=== PATIENT | female | born 1950 | race Caucasian/White ===

== ENCOUNTER → 2016-08-01 | Outpatient (REF) | payer MEDICARE, OTHER ==
[~2016-08-01] MED LIST: /RANI15TA PO; COMB0.2S OU; CRES5TAB PO; FOLITAB11 PO; IBUP200T2 PO; LEVO88TA4 PO; LOSA100T36 PO; VESI5TAB PO; VICO5TAB PO; VITA-122 PO
[2016-08-01 12:16] LABS: ALBUMIN 3.8 GM/DL (3.2-5.2); ALBUMIN/GLOBULIN RATIO 1.36 (1.00-1.93); ALKALINE PHOSPHATASE 74 U/L (45-117); ALT/SGPT 28 U/L (12-78); ANION GAP 8 MEQ/L (8-16); AST/SGOT 17 U/L (15-37); BILIRUBIN,TOTAL 0.3 MG/DL (0.2-1.0); BLOOD UREA NITROGEN 15 MG/DL (7-18); CARBON DIOXIDE LEVEL 29 MEQ/L (21-32); CHLORIDE LEVEL 108 MEQ/L (98-107); CREATININE FOR GFR 0.83 MG/DL (0.55-1.02); FREE T4 1.07 NG/DL (0.76-1.46); GLOMERULAR FILTRATION RATE > 60.0 (>45); GLUCOSE, FASTING 117 MG/DL (80-110); POTASSIUM SERUM 4.2 MEQ/L (3.5-5.1); SODIUM LEVEL 145 MEQ/L (136-145); TOTAL PROTEIN 6.6 GM/DL (6.4-8.2)
== END | disposition home or self-care (01) ==
LOC: M SFHCPLAZ 07:54
PROVIDERS: ATTEND Nurse Practitioner Family
DX: E78.5 Hyperlipidemia, unspecified (principal); E03.9 Hypothyroidism, unspecified; R73.01 Impaired fasting glucose; I10 Essential (primary) hypertension

== ENCOUNTER → 2016-10-30 | Outpatient (CLI) | payer MEDICARE, OTHER ==
--- NOTE | 2016-10-30 12:36 | RADONC ---
RADIATION ONCOLOGY FOLLOWUP NOTE DATE: 10/30/2016 CHART NUMBER: [id number] DIAGNOSIS: Left breast cancer stage I A, [id number]. ECOG PERFORMANCE STATUS: 0. FOLLOWUP NOTE: Ms. Kim is a very pleasant 66-year-old white female with the diagnosis of a Stage I A, [id number] moderately differentiated invasive ductal carcinoma of the left breast who is presenting to us today for routine followup visit 3 years and 4 months post completion of external beam radiation therapy. The patient presents today reporting that she is doing quite well with no complaints at this time related to her radiation therapy or disease. She has no breast or bone pain. REVIEW OF SYSTEMS: The patient's review of systems is noncontributory. Denies nausea, vomiting, fevers, chills, night sweats, diplopia, headaches, anxiety or depression, anorexia, weight loss, visual disturbances, chest pain, urinary or bowel difficulties, bone pain, or neurological problems. PHYSICAL EXAMINATION: The patient is a well-developed, well-nourished, 66-year-old female in no acute distress. HEENT exam is normocephalic, atraumatic. Extraocular movements are intact. There is no palpable cervical, supraclavicular, infraclavicular, axillary, or inguinal lymphadenopathy present. Lungs are clear to auscultation and percussion. Heart has a regular rate and rhythm. Abdomen is benign with no hepatosplenomegaly, masses, or tenderness. Breast examination reveals no masses or discharge bilaterally. Skeletal examination reveals no tenderness to pressure or percussion of the bony skeleton. Extremities reveal no clubbing, cyanosis, or edema. Neurologic exam is grossly intact, as is the remainder of the physical examination. ASSESSMENT: The patient is clinically ADRIAN at this time will be seen by us again in 6 months for further followup. She will also continue be followed by her other physicians as well.
== END ==
LOC: M ONCR 10:09
PROVIDERS: ATTEND Radiology Radiation Oncology
DX: C50.412 Malignant neoplasm of upper-outer quadrant of left female breast (principal)

== ENCOUNTER → 2017-01-22 | Outpatient (REF) | payer MEDICARE, OTHER ==
[2017-01-22 11:10] LABS: BASO % 0.5 % (0.0-1.0); EOS # 0.2 K/mm3 (0.0-0.50); EOS % 2.3 % (0.0-3.0); LARGE UNSTAINED CELL # 0.2 K/mm3 (0.0-0.4); LARGE UNSTAINED CELL % 2.1 % (0.0-4.0); LYMPH # 1.8 K/mm3 (1.5-4.5); LYMPH % 26.1 % (24.0-44.0); MEAN CORPUSCULAR HEMOGLOBIN 29.7 pg (27.0-33.0); MEAN CORPUSCULAR HGB CONC 33.1 g/dl (32.0-36.5); MEAN CORPUSCULAR VOLUME 89.6 fl (80.0-96.0); MONO # 0.4 K/mm3 (0.0-0.8); MONO % 6.1 % (0.0-5.0); NEUTROPHILS # 4.4 K/mm3 (1.8-7.7); NEUTROPHILS % 62.8 % (36.0-66.0); PLATELET COUNT, AUTOMATED 258 k/mm3 (150-450); RED CELL DISTRIBUTION WIDTH 12.1 % (11.5-14.5); WHITE BLOOD COUNT 6.9 K/mm3 (4.0-10.0)
[2017-01-22 11:37] LABS: ALBUMIN 3.6 GM/DL (3.2-5.2); ALKALINE PHOSPHATASE 60 U/L (45-117); ALT/SGPT 29 U/L (12-78); ANION GAP 10 MEQ/L (8-16); AST/SGOT 15 U/L (15-37); BILIRUBIN,TOTAL 0.3 MG/DL (0.2-1.0); BLOOD UREA NITROGEN 17 MG/DL (7-18); CALCIUM LEVEL 9.1 MG/DL (8.8-10.2); CARBON DIOXIDE LEVEL 29 MEQ/L (21-32); CHLORIDE LEVEL 104 MEQ/L (98-107); CHOLESTEROL LEVEL 164 MG/DL (<200); CREATININE FOR GFR 0.84 MG/DL (0.55-1.02); GLOMERULAR FILTRATION RATE > 60.0 (>45); GLUCOSE, FASTING 119 MG/DL (80-110); POTASSIUM SERUM 4.3 MEQ/L (3.5-5.1); SODIUM LEVEL 143 MEQ/L (136-145); TOTAL PROTEIN 6.6 GM/DL (6.4-8.2); TRIGLYCERIDES LEVEL 159 MG/DL (<150)
== END ==
LOC: M LABDRAW1 10:33
PROVIDERS: ATTEND Nurse Practitioner Family
DX: E78.5 Hyperlipidemia, unspecified (principal); E55.9 Vitamin D deficiency, unspecified

== ENCOUNTER → 2017-03-17 | Outpatient (REF) | payer MEDICARE, OTHER | LOC: M LAB REF 12:43 | PROVIDERS: ATTEND Physician Assistant | DX: N39.0 Urinary tract infection, site not specified (principal) ==

== ENCOUNTER → 2017-05-07 | Outpatient (CLI) | payer MEDICARE, OTHER ==
--- NOTE | 2017-05-08 07:59 | RADONC ---
RADIATION ONCOLOGY FOLLOWUP NOTE DATE: 05/07/2017 CHART NUMBER: [id number] DIAGNOSIS: Left breast cancer. STAGE: Stage I A, [id number]. ECOG PERFORMANCE STATUS: 0. FOLLOWUP NOTE: Ms. Kim is a very pleasant 66-year-old white female with the diagnosis of a stage I A, [id number], moderately differentiated invasive ductal carcinoma of the left breast who is presenting to us today for routine followup visit 3 and 10 months post completion of external beam radiation therapy. The patient presents today reporting that she is doing quite well with no complaints at this time related to her radiation therapy or disease. She has no breast or bone pain. REVIEW OF SYSTEMS: The patient's review of systems is noncontributory. Denies nausea, vomiting, fevers, chills, night sweats, diplopia, headaches, anxiety or depression, anorexia, weight loss, visual disturbances, chest pain, urinary or bowel difficulties, bone pain, or neurological problems. PHYSICAL EXAMINATION: The patient is a well-developed, well-nourished, 66-year-old female in no acute distress. HEENT exam is normocephalic, atraumatic. Extraocular movements are intact. There is no palpable cervical, supraclavicular, infraclavicular, axillary, or inguinal lymphadenopathy present. Lungs are clear to auscultation and percussion. Heart has a regular rate and rhythm. Abdomen is benign with no hepatosplenomegaly, masses, or tenderness. Breast examination reveals no masses or discharge bilaterally. Skeletal examination reveals no tenderness to pressure or percussion of the bony skeleton. Extremities reveal no clubbing, cyanosis, or edema. Neurologic exam is grossly intact, as is the remainder of the physical examination. ASSESSMENT: The patient is clinically ADRIAN at this time and will be seen by us again in 6 months for further followup. She will also continue to be followed by her other physicians as well. cc: Madelyn Camara PA-C
== END ==
LOC: M ONCR 09:53
PROVIDERS: ATTEND Radiology Radiation Oncology
DX: Z08 Encounter for follow-up examination after completed treatment for malignant neoplasm (principal); Z85.3 Personal history of malignant neoplasm of breast; Z92.3 Personal history of irradiation

== ENCOUNTER → 2017-05-11 | Outpatient (CLI) | payer MEDICARE, OTHER ==
--- NOTE | 2017-05-12 05:48 | REP ---
LEFT KNEE, FIVE VIEWS: Five views of the left knee performed. There is no evidence of acute fracture or dislocation. There is mild lateral patellofemoral compartment joint space narrowing with subchondral sclerosis and spurring. There does not appear to be a significant joint effusion. IMPRESSION: No fracture or dislocation. Signed by Tam Portillo MD 05/12/2017 09:01 A
== END ==
LOC: M WUC 15:07
PROVIDERS: ATTEND Physician Assistant
DX: S83.412A Sprain of medial collateral ligament of left knee, initial encounter (principal); X58.XXXA Exposure to other specified factors, initial encounter; Y92.89 Other specified places as the place of occurrence of the external cause; Y93.89 Activity, other specified; Y99.8 Other external cause status

== ENCOUNTER → 2017-08-15 | Outpatient (REF) | payer MEDICARE, OTHER ==
[2017-08-15 13:01] LABS: ALBUMIN 3.8 GM/DL (3.2-5.2); ALBUMIN/GLOBULIN RATIO 1.27 (1.00-1.93); ALKALINE PHOSPHATASE 63 U/L (45-117); ALT/SGPT 33 U/L (12-78); ANION GAP 9 MEQ/L (8-16); AST/SGOT 18 U/L (7-37); BILIRUBIN,TOTAL 0.3 MG/DL (0.2-1.0); BLOOD UREA NITROGEN 16 MG/DL (7-18); CALCIUM LEVEL 8.8 MG/DL (8.8-10.2); CARBON DIOXIDE LEVEL 29 MEQ/L (21-32); CHLORIDE LEVEL 106 MEQ/L (98-107); CREATININE FOR GFR 0.82 MG/DL (0.55-1.30); FREE T4 1.08 NG/DL (0.76-1.46); GLOMERULAR FILTRATION RATE > 60.0 (>45); GLUCOSE, FASTING 115 MG/DL (70-100); POTASSIUM SERUM 4.1 MEQ/L (3.5-5.1); SODIUM LEVEL 144 MEQ/L (136-145); TOTAL PROTEIN 6.8 GM/DL (6.4-8.2)
== END ==
LOC: M LABDRAW1 08:21
DX: I10 Essential (primary) hypertension (principal); E03.9 Hypothyroidism, unspecified; E55.9 Vitamin D deficiency, unspecified
CPT/HCPCS: 84443

== ENCOUNTER → 2017-10-22 | Outpatient (CLI) | payer MEDICARE, BC, OTHER | LOC: M ONCR 09:19 | DX: Z08 Encounter for follow-up examination after completed treatment for malignant neoplasm (principal); Z85.3 Personal history of malignant neoplasm of breast | CPT/HCPCS: G0463 ==

== ENCOUNTER 2017-10-28 10:59 | Day surgery (SDC) | payer MEDICARE, BC, OTHER ==
[2017-10-28] MEDS: LR 1,000 ML IV (11:45)
[2017-10-28] MEDS ORDERED: LIDOCAINE 2% INJ 100 MG/5 ML SYRINGE As Ordered (13:20)
[2017-10-28] MEDS ORDERED: PROPOFOL 200 MG/20 ML VIAL As Ordered ×2 (13:20→13:35)
== END 2017-10-28 14:50 | disposition home or self-care (01) ==
LOC: M OPP 10:59
DX: Z12.11 Encounter for screening for malignant neoplasm of colon (principal); Z86.010 Personal history of colon polyps; D12.3 Benign neoplasm of transverse colon; D12.5 Benign neoplasm of sigmoid colon; D12.2 Benign neoplasm of ascending colon; D17.5 Benign lipomatous neoplasm of intra-abdominal organs; K57.30 Diverticulosis of large intestine without perforation or abscess without bleeding; I10 Essential (primary) hypertension; E78.5 Hyperlipidemia, unspecified; E03.9 Hypothyroidism, unspecified; K21.9 Gastro-esophageal reflux disease without esophagitis; M19.90 Unspecified osteoarthritis, unspecified site; H40.9 Unspecified glaucoma; E66.9 Obesity, unspecified; Z85.3 Personal history of malignant neoplasm of breast; Z92.3 Personal history of irradiation; Z87.891 Personal history of nicotine dependence; Z88.8 Allergy status to other drugs, medicaments and biological substances; Z88.2 Allergy status to sulfonamides; Z79.899 Other long term (current) drug therapy
CPT/HCPCS: 45388

== ENCOUNTER → 2018-02-04 | Outpatient (REF) | payer MEDICARE, BC, OTHER ==
[2018-02-04 12:38] LABS: ALBUMIN 3.7 GM/DL (3.2-5.2); ALBUMIN/GLOBULIN RATIO 1.12 (1.00-1.93); ALKALINE PHOSPHATASE 68 U/L (45-117); ALT/SGPT 33 U/L (12-78); ANION GAP 7 MEQ/L (8-16); AST/SGOT 19 U/L (7-37); BILIRUBIN,TOTAL 0.3 MG/DL (0.2-1.0); BLOOD UREA NITROGEN 14 MG/DL (7-18); CALCIUM LEVEL 8.8 MG/DL (8.8-10.2); CARBON DIOXIDE LEVEL 30 MEQ/L (21-32); CHLORIDE LEVEL 107 MEQ/L (98-107); CHOLESTEROL LEVEL 152 MG/DL (<200); CREATININE FOR GFR 0.83 MG/DL (0.55-1.30); FREE T4 0.99 NG/DL (0.76-1.46); GLOMERULAR FILTRATION RATE > 60.0 (>45); GLUCOSE, FASTING 118 MG/DL (70-100); HDL CHOLESTEROL 40 MG/DL (>40); NON-HDL-C 112 MG/DL; POTASSIUM SERUM 4.3 MEQ/L (3.5-5.1); SODIUM LEVEL 144 MEQ/L (136-145); TRIGLYCERIDES LEVEL 175 MG/DL (<150)
[2018-02-04 12:41] LABS: MALB URINE SIEMENS 90.2 MG/L; MAU/CREAT RATIO 65.8 MCG/MG (0.0-30.0)
[2018-02-04 14:06] LABS: ESTIMATED AVERAGE GLUCOSE 140 MG/DL (60-110); HEMOGLOBIN A1c 6.5 %
== END ==
LOC: M LABDRAW1 07:36
DX: E78.5 Hyperlipidemia, unspecified (principal); E03.9 Hypothyroidism, unspecified; R73.01 Impaired fasting glucose; I10 Essential (primary) hypertension
CPT/HCPCS: 84443

== ENCOUNTER → 2018-04-06 | Outpatient (REF) | payer MEDICARE, OTHER | LOC: M SFHCPLAZ 12:15 | DX: D22.39 Melanocytic nevi of other parts of face (principal); A50 Congenital syphilis; L57.0 Actinic keratosis; L57.8 Other skin changes due to chronic exposure to nonionizing radiation | CPT/HCPCS: 88305 ==

== ENCOUNTER → 2018-04-22 | Outpatient (CLI) | payer MEDICARE, BC, OTHER | LOC: M ONCR 09:16 | DX: C50.912 Malignant neoplasm of unspecified site of left female breast (principal) | CPT/HCPCS: G0463 ==

== ENCOUNTER → 2018-05-12 | Outpatient (REF) | payer MEDICARE, OTHER ==
[2018-05-12 10:45] LABS: ALBUMIN 3.8 GM/DL (3.2-5.2); ALBUMIN/GLOBULIN RATIO 1.19 (1.00-1.93); ALKALINE PHOSPHATASE 69 U/L (45-117); ALT/SGPT 30 U/L (12-78); ANION GAP 8 MEQ/L (8-16); AST/SGOT 16 U/L (7-37); BILIRUBIN,TOTAL 0.3 MG/DL (0.2-1.0); BLOOD UREA NITROGEN 16 MG/DL (7-18); CALCIUM LEVEL 9.1 MG/DL (8.8-10.2); CARBON DIOXIDE LEVEL 27 MEQ/L (21-32); CHLORIDE LEVEL 106 MEQ/L (98-107); CREATININE FOR GFR 0.83 MG/DL (0.55-1.30); FREE T4 1.01 NG/DL (0.76-1.46); GLOMERULAR FILTRATION RATE > 60.0 (>45); GLUCOSE, FASTING 138 MG/DL (70-100); POTASSIUM SERUM 4.3 MEQ/L (3.5-5.1); SODIUM LEVEL 141 MEQ/L (136-145)
[2018-05-12 10:47] LABS: TOTAL 25(OH) VITAMIN D 53.2 NG/ML (30.0-100.0)
== END ==
LOC: M LABDRAW1 10:06
DX: I10 Essential (primary) hypertension (principal); R73.01 Impaired fasting glucose; E03.9 Hypothyroidism, unspecified; E55.9 Vitamin D deficiency, unspecified
CPT/HCPCS: 84443

== ENCOUNTER → 2018-05-20 | Outpatient (REF) | payer MEDICARE, OTHER ==
[2018-05-20 14:03] LABS: ESTIMATED AVERAGE GLUCOSE 157 MG/DL (60-110); HEMOGLOBIN A1c 7.1 %
== END ==
LOC: M SFHCPLAZ 08:52
DX: I10 Essential (primary) hypertension (principal); R73.01 Impaired fasting glucose
CPT/HCPCS: 83036

== ENCOUNTER → 2018-05-26 | Outpatient (REF) | payer MEDICARE, OTHER ==
[2018-05-26 14:12] LABS: APPEARANCE, URINE CLEAR (CLEAR); BACTERIA, URINE AUTO NEGATIVE (NEGATIVE); BILIRUBIN, URINE AUTO NEGATIVE (NEGATIVE); BLOOD, URINE BLOOD 3+ (NEGATIVE); COLOR, URINE STRAW (YELLOW); GLUCOSE, URINE (UA) AUTO NEGATIVE (NEGATIVE); KETONE, URINE AUTO NEGATIVE (NEGATIVE); LEUKOCYTE ESTERASE, URINE AUTO NEGATIVE (NEGATIVE); NITRITE, URINE AUTO NEGATIVE (NEGATIVE); PROTEIN, URINE AUTO NEGATIVE (NEGATIVE); RBC, URINE AUTO 13 /HPF (0-3); SPECIFIC GRAVITY URINE AUTO 1.005 (1.002-1.035); SQUAMOUS EPITHELIAL CELL UR AU 0 /HPF (0-6); UROBILINOGEN, URINE AUTO 0.2 mg/dL (0.0-2.0); WBC, URINE AUTO 4 /HPF (0-3)
== END ==
LOC: M LAB REF 13:31
DX: N39.0 Urinary tract infection, site not specified (principal)
CPT/HCPCS: 81001

== ENCOUNTER → 2018-06-19 | Outpatient (REF) | payer MEDICARE, OTHER ==
[~2018-06-19] MED LIST changes: +DESO0.0557 TOP; +EXEM25TA PO; +FLON1SPR; +FLUO1CRE4 TOP; +FOLI400T PO; +LORA-243 PO; +LORA10CA PO; +LOSA100T50 PO; +METF500T13 PO; +OMEP-221 PO; +ROSU5TAB4 PO; +SYNT100T PO; +TAFLUPROST OU; +THERSOL2 OU; +VITA30004 PO
[2018-06-19 19:08] LABS: CREATININE, URINE 51.7 MG/DL; MALB URINE SIEMENS 91.4 MG/L; MAU/CREAT RATIO 176.7 MCG/MG (0.0-30.0)
[2018-06-27 14:13] LABS: HPV HYBRID CAPTURE II Negative (Negative)
== END ==
LOC: M SFHCPLAZ 18:02
PROVIDERS: ATTEND Nurse Practitioner Family
DX: N95.0 Postmenopausal bleeding (principal); R30.0 Dysuria; Z12.4 Encounter for screening for malignant neoplasm of cervix
CPT/HCPCS: 36415; 81002; 82043; 85025; 87086; 87624; G0123; G0463

== ENCOUNTER → 2018-06-19 | Outpatient (REF) | payer MEDICARE, OTHER ==
[2018-06-19 18:10] LABS: BASO % 0.4 % (0.0-1.0); EOS # 0.2 10^3/uL (0.0-0.50); EOS % 2.6 % (0.0-3.0); HEMATOCRIT 43.6 % (36.0-47.0); IMMATURE GRANULOCYTE % 0.4 % (0-3.0); LYMPH # 2.7 10^3/uL (1.5-4.5); LYMPH % 30.4 % (24.0-44.0); MEAN CORPUSCULAR HEMOGLOBIN 28.8 pg (27.0-33.0); MEAN CORPUSCULAR HGB CONC 32.1 g/dl (32.0-36.5); MEAN CORPUSCULAR VOLUME 89.7 fl (80.0-96.0); MONO # 0.9 10^3/uL (0.0-0.8); MONO % 9.9 % (0.0-5.0); NEUTROPHILS # 5.1 10^3/uL (1.8-7.7); NEUTROPHILS % 56.3 % (36.0-66.0); PLATELET COUNT, AUTOMATED 263 10^3/uL (150-450); RED BLOOD COUNT 4.86 10^6/uL (4.00-5.40); RED CELL DISTRIBUTION WIDTH 12.3 % (11.5-14.5)
== END ==
LOC: M SFHCPLAZ 14:59
DX: N95.0 Postmenopausal bleeding (principal)
CPT/HCPCS: 85025

== ENCOUNTER → 2018-06-29 | Outpatient (REF) | payer MEDICARE, OTHER ==
[~2018-06-29] MED LIST changes: -DESO0.0557 TOP; -FLON1SPR; -FLUO1CRE4 TOP; -LORA-243 PO; -METF500T13 PO; -THERSOL2 OU
== END ==
LOC: M LABSMT 09:15
PROVIDERS: ATTEND Urology Pediatric Urology
DX: I10 Essential (primary) hypertension (principal); R73.01 Impaired fasting glucose; E55.9 Vitamin D deficiency, unspecified; N32.89 Other specified disorders of bladder; Z53.8 Procedure and treatment not carried out for other reasons

== ENCOUNTER → 2018-06-30 | Outpatient (REF) | payer MEDICARE, OTHER | LOC: M SMT 12:46 | PROVIDERS: ATTEND Urology Pediatric Urology | DX: N32.89 Other specified disorders of bladder (principal) ==

== ENCOUNTER → 2018-06-30 | Outpatient (CLI) | payer MEDICARE, BC, OTHER ==
[2018-06-30 14:07] LABS: BASO # 0.1 10^3/uL (0.0-0.2); BASO % 0.5 % (0.0-1.0); EOS # 0.2 10^3/uL (0.0-0.50); EOS % 2.5 % (0.0-3.0); HEMATOCRIT 46.5 % (36.0-47.0); HEMOGLOBIN 14.8 g/dl (12.0-15.5); LYMPH # 2.9 10^3/uL (1.5-4.5); LYMPH % 31.7 % (24.0-44.0); MEAN CORPUSCULAR HEMOGLOBIN 28.9 pg (27.0-33.0); MEAN CORPUSCULAR HGB CONC 31.8 g/dl (32.0-36.5); MEAN CORPUSCULAR VOLUME 90.8 fl (80.0-96.0); MONO # 0.6 10^3/uL (0.0-0.8); MONO % 6.7 % (0.0-5.0); NEUTROPHILS # 5.4 10^3/uL (1.8-7.7); PLATELET COUNT, AUTOMATED 279 10^3/uL (150-450); RED BLOOD COUNT 5.12 10^6/uL (4.00-5.40); WHITE BLOOD COUNT 9.3 10^3/uL (4.0-10.0)
[2018-06-30 14:13] LABS: ALBUMIN 3.8 GM/DL (3.2-5.2); ALT/SGPT 37 U/L (12-78); BILIRUBIN,TOTAL 0.3 MG/DL (0.2-1.0); BLOOD UREA NITROGEN 13 MG/DL (7-18); CALCIUM LEVEL 9.2 MG/DL (8.8-10.2); CARBON DIOXIDE LEVEL 27 MEQ/L (21-32); CHLORIDE LEVEL 107 MEQ/L (98-107); CREATININE FOR GFR 0.78 MG/DL (0.55-1.30); GLOMERULAR FILTRATION RATE > 60.0 (>45); GLUCOSE, FASTING 122 MG/DL (70-100); POTASSIUM SERUM 4.8 MEQ/L (3.5-5.1); SODIUM LEVEL 143 MEQ/L (136-145)
[2018-06-30 14:19] LABS: INR 0.93; PROTHROMBIN TIME 12.6 SECONDS (12.1-14.4)
[2018-06-30 14:20] LABS: PARTIAL THROMBOPLASTIN TIME 29.9 SECONDS (25.4-37.6)
[2018-06-30 14:25] LABS: HEMOGLOBIN A1c 7.2 %
== END ==
LOC: M SMT 09:10
PROVIDERS: ATTEND Urology Pediatric Urology
DX: I10 Essential (primary) hypertension (principal); R73.01 Impaired fasting glucose; E55.9 Vitamin D deficiency, unspecified; N32.89 Other specified disorders of bladder

== ENCOUNTER → 2018-07-06 | Outpatient (CLI) | payer MEDICARE, BC, OTHER ==
--- NOTE | 2018-07-06 11:30 | REP ---
Chest x-ray: Two views. History: Preoperative testing. Comparison chest x-ray: October 05, 2013. Findings: The lungs are symmetrically aerated and clear. Pleural angles are sharp. Heart size is borderline and has increased somewhat since the prior study in 2013. Cardiothoracic ratio today measures 51%. There are degenerative changes in the thoracic spine. Mild transverse aortic calcification is seen. There is a benign bone infarct in the proximal humerus on the right. Impression: Borderline heart size. Otherwise no acute disease. Electronically Signed by John Guzman MD 07/06/2018 08:12 P
--- NOTE | 2018-07-08 07:54 | ECGEPIP ---
Stationary ECG Study [facility] Test Date: 2018-07-06 Pat Name: ELIZABETH ALTAMIRANO Department: Room: - Gender: F Deburrer Machine: : [id number] Requested By: WOLF Monteiro Order Number: [id number] Reading MD: Carlos Gordon Measurements Intervals Newell Rate: 62 P: 29 WA: 169 QRS: 17 QRSD: 101 T: 47 QT: 415 QTc: 422 Interpretive Statements SINUS RHYTHM Comparison tracing not on file Electronically Signed On 07-08-2018 7:54:19 EST by Carlos Gordon
== END ==
LOC: M EKG 09:51
PROVIDERS: ATTEND Urology
DX: Z01.818 Encounter for other preprocedural examination (principal); D49.4 Neoplasm of unspecified behavior of bladder; N39.0 Urinary tract infection, site not specified

== ENCOUNTER → 2018-07-06 | Outpatient (CLI) | payer MEDICARE, BC, OTHER ==
[~2018-07-06] MED LIST changes: +DESO0.0557 TOP; +FLON1SPR; +FLUO1CRE4 TOP; +ISOVUE-370 76% 100ML VIAL (Q9967) As Ordered ONE; +LORA-243 PO; +METF500T13 PO; +THERSOL2 OU
--- NOTE | 2018-07-06 11:25 | REP ---
CT UROGRAPHY: CT study without and with IV phase postcontrast imaging. HISTORY: Bladder mass. Identified sonographically June 25, 2018. No comparison CT imaging. CT CONTRAST DOSE: 100 mL of intravenous Isovue 370. CT FINDINGS: Preliminary digital device engineer radiograph demonstrates clips in right upper quadrant post cholecystectomy. Bowel gas pattern is normal. The lung bases are clear on axial images. The liver shows mild diffuse fatty infiltration. No focal liver mass lesion is seen. Liver and spleen are normal in size. No splenic abnormality is seen. Normal adrenal glands are seen bilaterally. No pancreatic abnormality is noted. No retroperitoneal mass or adenopathy is seen. A retroaortic left renal vein is noted. Kidneys are morphologically intact. No hydronephrosis is seen on either side. No renal mass lesion is observed. There is a tiny cortical cyst in the upper pole on the left. Delayed scan images show no evidence of filling defect in the upper tract collecting system on either side. Ureters describe a normal course to the bladder. The CT study confirms the presence of an irregular enhancing soft tissue mass in the left posterior bladder base measuring approximately 3.6 x 3.3 cm. This corresponds the ultrasound findings. No perivesical infiltration is appreciated. There is a normal size 7 mm short axis lymph node in each external iliac lymph node change. No internal or external iliac lymphadenopathy is seen. No inguinal or obturator adenopathy is appreciated. There is left colonic diverticulosis without CT evidence of diverticulitis. There is left colonic diverticulosis without CT evidence of diverticulitis. No uterine or ovarian abnormality is seen. No abdominal wall defect is seen. Bone window setting demonstrate degenerative changes in the lumbar spine and osteoarthritic changes in the hips. No bony destructive lesion is seen. IMPRESSION: 3.6 cm irregular enhancing neoplastic bladder mass. No other significant urinary tract abnormality. Left colonic diverticulosis. Fatty infiltration of the liver. Post cholecystectomy clips. Electronically Signed by John Guzman MD 07/06/2018 08:12 P
== END ==
LOC: M RAD 08:28
PROVIDERS: ATTEND Urology Pediatric Urology
DX: Z01.818 Encounter for other preprocedural examination (principal); N32.89 Other specified disorders of bladder; D48.4 Neoplasm of uncertain behavior of peritoneum; N39.0 Urinary tract infection, site not specified; Z90.49 Acquired absence of other specified parts of digestive tract
CPT/HCPCS: 71046; 74178; 93005; Q9967

== ENCOUNTER → 2018-07-09 | Outpatient (REF) | payer MEDICARE, OTHER ==
[~2018-07-09] MED LIST changes: -ISOVUE-370 76% 100ML VIAL (Q9967) As Ordered ONE
== END ==
LOC: M SMT 17:11
PROVIDERS: ATTEND Urology
DX: Z01.818 Encounter for other preprocedural examination (principal); N39.0 Urinary tract infection, site not specified; D49.4 Neoplasm of unspecified behavior of bladder

== ENCOUNTER 2018-07-16 13:54 | Day surgery (SDC) | payer MEDICARE, BC, OTHER ==
[~2018-07-16] VITALS: Ht 160 cm; Wt 96.2 kg
[~2018-07-16 13:54] MED LIST changes: +LIDOCAINE 1% MDV 20ML VIAL SQ PRN; +LR 1,000 ML IV ONE
[2018-07-16] MEDS ORDERED: SCOPOLAMINE 1MG TRANSDERMAL PATCH As Ordered ONE (15:16)
[2018-07-16] MEDS ORDERED: SCOPOLAMINE 1MG TRANSDERMAL PATCH TOP ONE (15:30)
[2018-07-16] MEDS ORDERED: LIDOCAINE 1% SDV INJ 30 ML VIAL As Ordered ONE (16:26)
[2018-07-16] MEDS ORDERED: CONRAY-60 60% 50ML VIAL (Q9961) As Ordered ONE (16:26)
[2018-07-16] MEDS: LABETALOL HCL 100 MG/20 ML VIAL IV SCH ×5 (17:16→19:51)
[2018-07-16] MEDS ORDERED: PHENYLephrine HCL 500 MCG/5 ML (100MCG/ML) SYRINGE (J2370) As Ordered ONE (17:32)
[2018-07-16] MEDS ORDERED: fentaNYL 250 MCG/5 ML INJECTION (J3010) As Ordered ONE (17:51)
[2018-07-16] MEDS ORDERED: ROCURONIUM BROMIDE 50 MG/5 ML VIAL As Ordered ONE (17:51)
[2018-07-16] MEDS ORDERED: PROPOFOL 200 MG/20 ML VIAL As Ordered ONE (17:51)
[2018-07-16] MEDS ORDERED: MIDAZOLAM INJ 2 MG/2 ML VIAL (J2250) As Ordered ONE (17:51)
[2018-07-16] MEDS ORDERED: ONDANSETRON 4MG/2ML VIAL (J2405) As Ordered ONE ×2 (17:51→19:17)
[2018-07-16] MEDS ORDERED: dexameTHASONE 4 MG/ML 1ML VIAL (J1100) As Ordered ONE (17:51)
[2018-07-16] MEDS ORDERED: SUGAMMADEX SODIUM 500 MG/5 ML VIAL (BRIDION) As Ordered ONE (17:52)
[2018-07-16] MEDS ORDERED: GLYCOPYRROLATE INJ 0.2 MG/ML 2 ML VIAL As Ordered ONE (18:43)
--- NOTE | 2018-07-16 18:57 | REP ---
C-ARM VIEWS DURING RETROGRADE PYELOGRAM: Two C-ARM views are obtained. First image shows contrast opacifying a nondilated left pelvicaliceal system, with no definite filling defect. There is mild contrast also seen in the medial perirenal space. The catheter is seen with the proximal end in the left renal pelvis. The second image shows the catheter once again with the superior end coiled in the region of the left renal pelvis. Contrast previously seen in the pelvicaliceal system is no longer visualized. There is mild perirenal contrast medially. 1 minute 2 second of fluoroscopy time was utilized. Electronically Signed by Tam Portillo MD 07/16/2018 07:50 P
[2018-07-16] MEDS ORDERED: LABETALOL HCL 100 MG/20 ML VIAL As Ordered ONE (19:11)
[2018-07-16] MEDS ORDERED: LR 1,000 ML IV SCH (19:30)
[2018-07-16] MEDS ORDERED: METOCLOPRAMIDE INJ 10MG/2ML VIAL (J2765) IV PRN (19:30)
[2018-07-16] MEDS ORDERED: fentaNYL 100 MCG/2 ML INJECTION (J3010) IV PRN (19:30)
[2018-07-16] MEDS ORDERED: ONDANSETRON 4MG/2ML VIAL (J2405) IV PRN (19:30)
[2018-07-16] MEDS ORDERED: PERCOCET 5MG/325MG TAB PO PRN ×2 (19:30→19:45)
[2018-07-16] MEDS ORDERED: MEPERIDINE INJ 25 MG/ML VIAL (J2175) IV PRN (19:30)
[2018-07-16] MEDS ORDERED: oxyBUTYnin 5 MG TAB PO PRN (19:45)
[2018-07-16 19:51] VITALS: BP 174/80
[2018-07-16] MEDS ORDERED: METOCLOPRAMIDE INJ 10MG/2ML VIAL (J2765) As Ordered ONE (20:42)
[2018-07-16 22:20] VITALS: BP 141/63
--- NOTE | 2018-07-16 22:26 | RO ---
DATE OF PROCEDURE: 07/16/2018 PREPROCEDURE DIAGNOSIS: Bladder tumor. POSTPROCEDURE DIAGNOSIS: Bladder tumor. PROCEDURE: Cystoscopy, transurethral resection of bladder tumor (greater than 5 cm), left retrograde pyelogram with intraoperative interpretation of images, left ureteral stent placement, bimanual examination under anesthesia. SURGEON: Dr. Meet Garcia NEEDLE BOARD REPAIRER: None. ANESTHESIA: General. OPERATIVE INDICATIONS: This is a 67-year-old female who was recently found to have several large bladder tumors on the left lateral wall on cystoscopy. It was recommended that she be brought to the operating room today for the above listed procedure. DESCRIPTION OF PROCEDURE: The patient was brought to the operating room and general anesthesia induced. Prophylactic antibiotics were infused. She was then placed in the dorsal lithotomy position and prepped and draped in the usual sterile fashion. At this point, a bimanual vaginal exam under anesthesia was performed. Of note, there were no palpable bladder masses. The bladder was freely mobile. At this point, I inserted a resectoscope using visual obturator. The bladder was then thoroughly examined and the only abnormality seen was a large collection of papillary tumors on the left lateral wall as well as a small one on the anterior wall near the bladder neck. At this point, a resectoscope was utilized to resect all of the bladder tumor all the way down to the muscle layer. All of the bladder tumors were removed from the bladder using an Ellik evacuator. Once all of the tumors had been removed, hemostasis was obtained using a coagulation current. Once satisfied with hemostasis, I observed the left ureteral orifice and of note, I did have to cauterize very close to the left ureteral orifice but not on top of it. Given concern that the ureteral orifice might not drain normally, I then decided to place a stent. At this point, I advanced a wire up the left collecting system and then advanced an open ended ureteral catheter up. The wire was then removed and a retrograde pyelogram was performed. The retrograde pyelogram was negative for extravasation or hydronephrosis. I then advanced the wire back up in the left collecting system and removed the ureteral catheter. The wire was then utilized to advance a #7-Iranian x 22-32 cm JJ ureteral stent up to the left collecting system. The wire was then removed, and there were adequate curls of the stent in the left renal pelvis and in the bladder. Once that was done, the scope was removed, and I advanced an #18-Iranian Dukes catheter into the bladder. The balloon was filled with 10 mL of sterile water and fluid drained light pink at the end of the procedure. The catheter was then connected to gravity drainage and then I turned the procedure over to Dr. Coon for him to do his portion of the procedure. Estimated blood loss: 10 mL. Complications: None. Specimens: Bladder tumors. PLAN: The patient will followup in the clinic in approximately 1 week for catheter removal and to discuss her pathology results. I will likely leave her stent in place for 2-3 weeks. MARLENE
--- NOTE | 2018-07-17 09:20 | RO ---
DATE OF PROCEDURE: 07/16/2018 PREPROCEDURE DIAGNOSIS: Postmenopausal bleeding. POSTPROCEDURE DIAGNOSIS: Postmenopausal bleeding. PROCEDURE PERFORMED: Endometrial biopsy. SURGEON: Laly Coon MD INTEL RECRUITER: None. ANESTHESIA: General. ESTIMATED BLOOD LOSS: Minimal. DESCRIPTION OF PROCEDURE: This procedure was done in conjunction with Dr. Garcia's transurethral resection of bladder tumor. I was called at the completion of the procedure to perform an endometrial biopsy. The patient was already prepped and draped in a normal sterile fashion. She was in the lithotomy position under general anesthesia. A second time-out was then performed identifying the patient, procedure to be performed, as well as drug allergies. A bivalve speculum was placed revealing the cervix. The anterior lip of the cervix was grasped with a single toothed tenaculum and endometrial Pipelle was then advanced through the cervical os to the level of the fundus. The uterus was sounded to approximately 8 cm. On two passes, minimal amounts of tissue was obtained and sent to pathology. The single toothed tenaculum was then removed. Tenaculum sites were noted to be hemostatic. Speculum was then removed. The patient was then taken out of lithotomy position, awakened from general anesthesia and taken to recovery in stable condition. Counts were correct. MTDD
== END 2018-07-16 22:31 | disposition home or self-care (01) ==
LOC: M SDC 13:54
PROVIDERS: ATTEND Urology
DX: C67.2 Malignant neoplasm of lateral wall of bladder (principal); N95.0 Postmenopausal bleeding; E11.9 Type 2 diabetes mellitus without complications; K21.9 Gastro-esophageal reflux disease without esophagitis; E03.9 Hypothyroidism, unspecified; Z88.2 Allergy status to sulfonamides; Z88.8 Allergy status to other drugs, medicaments and biological substances; Z79.84 Long term (current) use of oral hypoglycemic drugs; Z79.899 Other long term (current) drug therapy; Z87.891 Personal history of nicotine dependence
CPT/HCPCS: 52240; 52332; 58558; 74420; 88305; 88307; C1769; C2617; J0690; J1100; J2250; J2370; J2405; J2765; J3010; Q9961

== ENCOUNTER → 2018-09-25 | Outpatient (REF) | payer MEDICARE, OTHER ==
[~2018-09-25] MED LIST changes: -/RANI15TA PO; -LIDOCAINE 1% MDV 20ML VIAL SQ PRN; -LR 1,000 ML IV ONE; +RANI1TAB17 PO
[2018-09-25 12:21] LABS: ALT/SGPT 35 U/L (12-78); BILIRUBIN,TOTAL 0.3 MG/DL (0.2-1.0); BLOOD UREA NITROGEN 14 MG/DL (7-18); CALCIUM LEVEL 9.1 MG/DL (8.8-10.2); CARBON DIOXIDE LEVEL 29 MEQ/L (21-32); CHLORIDE LEVEL 106 MEQ/L (98-107); CREATININE FOR GFR 0.71 MG/DL (0.55-1.30); GLOMERULAR FILTRATION RATE > 60.0 (>39); GLUCOSE, FASTING 125 MG/DL (70-100); POTASSIUM SERUM 4.2 MEQ/L (3.5-5.1); SODIUM LEVEL 143 MEQ/L (136-145); TOTAL PROTEIN 6.8 GM/DL (6.4-8.2)
[2018-09-25 12:22] LABS: TOTAL 25(OH) VITAMIN D 54.3 NG/ML (30.0-100.0)
[2018-09-25 13:14] LABS: HEMOGLOBIN A1c 6.4 %
== END ==
LOC: M LABDRAW1 11:45
PROVIDERS: ATTEND Nurse Practitioner Family
DX: E55.9 Vitamin D deficiency, unspecified (principal); I10 Essential (primary) hypertension

== ENCOUNTER → 2018-09-30 | Outpatient (REF) | payer MEDICARE, OTHER ==
[2018-09-30 12:34] LABS: ALBUMIN 3.7 GM/DL (3.2-5.2); ALT/SGPT 27 U/L (12-78); BILIRUBIN,TOTAL 0.3 MG/DL (0.2-1.0); BLOOD UREA NITROGEN 17 MG/DL (7-18); CARBON DIOXIDE LEVEL 29 MEQ/L (21-32); CHLORIDE LEVEL 106 MEQ/L (98-107); CREATININE FOR GFR 0.77 MG/DL (0.55-1.30); GLOMERULAR FILTRATION RATE > 60.0 (>39); GLUCOSE, FASTING 186 MG/DL (70-100); POTASSIUM SERUM 3.9 MEQ/L (3.5-5.1); SODIUM LEVEL 141 MEQ/L (136-145); TOTAL PROTEIN 6.7 GM/DL (6.4-8.2)
== END ==
LOC: M SFHCPLAZ 08:49
PROVIDERS: ATTEND Nurse Practitioner Family
DX: E03.9 Hypothyroidism, unspecified (principal); E78.5 Hyperlipidemia, unspecified; E11.9 Type 2 diabetes mellitus without complications
CPT/HCPCS: 36415; 80053; 84443; G0463

== ENCOUNTER → 2018-11-02 | Outpatient (REF) | payer MEDICARE, OTHER ==
[~2018-11-02] MED LIST changes: +AMLO5TAB6 PO
== END ==
LOC: M SMT 13:44
PROVIDERS: ATTEND Urology
DX: C67.9 Malignant neoplasm of bladder, unspecified (principal)

== ENCOUNTER → 2018-11-18 | Outpatient (REF) | payer MEDICARE, BC, OTHER ==
[2018-11-18 12:34] LABS: HEMATOCRIT 45.7 % (36.0-47.0); HEMOGLOBIN 14.5 g/dl (12.0-15.5); MEAN CORPUSCULAR HEMOGLOBIN 29.2 pg (27.0-33.0); MEAN CORPUSCULAR HGB CONC 31.7 g/dl (32.0-36.5); MEAN CORPUSCULAR VOLUME 92.1 fl (80.0-96.0); PLATELET COUNT, AUTOMATED 274 10^3/uL (150-450); RED BLOOD COUNT 4.96 10^6/uL (4.00-5.40); WHITE BLOOD COUNT 7.6 10^3/uL (4.0-10.0)
[2018-11-18 12:49] LABS: BLOOD UREA NITROGEN 13 MG/DL (7-18); CALCIUM LEVEL 8.8 MG/DL (8.8-10.2); CARBON DIOXIDE LEVEL 29 MEQ/L (21-32); CHLORIDE LEVEL 105 MEQ/L (98-107); CREATININE FOR GFR 0.81 MG/DL (0.55-1.30); GLOMERULAR FILTRATION RATE > 60.0 (>39); GLUCOSE, FASTING 107 MG/DL (70-100); POTASSIUM SERUM 4.2 MEQ/L (3.5-5.1); SODIUM LEVEL 144 MEQ/L (136-145)
== END ==
LOC: M LABDRAW1 07:53
PROVIDERS: ATTEND Urology
DX: C67.9 Malignant neoplasm of bladder, unspecified (principal); Z01.818 Encounter for other preprocedural examination; N39.0 Urinary tract infection, site not specified

== ENCOUNTER 2018-11-25 07:24 | Day surgery (SDC) | payer MEDICARE, BC, OTHER ==
[~2018-11-25] VITALS: Ht 157.5 cm; Wt 90.7 kg
[~2018-11-25 07:24] MED LIST changes: +LIDOCAINE 1% MDV 20ML VIAL SQ PRN; +LR 1,000 ML IV ONE; +mitoMYcin 40MG VIAL (J9280 PER 5MG) INTRAVESIC ONE
[2018-11-25] MEDS ORDERED: fentaNYL 250 MCG/5 ML INJECTION (J3010) As Ordered ONE (07:59)
[2018-11-25] MEDS ORDERED: PROPOFOL 200 MG/20 ML VIAL As Ordered ONE (07:59)
[2018-11-25] MEDS ORDERED: LIDOCAINE 2% INJ 100 MG/5 ML SDV (FOR ANES.) As Ordered ONE (07:59)
[2018-11-25] MEDS ORDERED: ROCURONIUM BROMIDE 50 MG/5 ML VIAL As Ordered ONE (07:59)
[2018-11-25] MEDS ORDERED: MIDAZOLAM INJ 2 MG/2 ML VIAL (J2250) As Ordered ONE (07:59)
[2018-11-25] MEDS ORDERED: SCOPOLAMINE 1MG TRANSDERMAL PATCH As Ordered ONE (08:35)
[2018-11-25] MEDS ORDERED: SCOPOLAMINE 1MG TRANSDERMAL PATCH TOP ONE (09:00)
[2018-11-25] MEDS ORDERED: METOCLOPRAMIDE INJ 10MG/2ML VIAL (J2765) As Ordered ONE ×2 (09:23→10:31)
[2018-11-25] MEDS ORDERED: KETOROLAC 60 MG/2 ML VIAL (J1885) As Ordered ONE (09:23)
[2018-11-25] MEDS ORDERED: ONDANSETRON 4MG/2ML VIAL (J2405) As Ordered ONE (09:23)
[2018-11-25] MEDS ORDERED: diphenhydrAMINE INJ 50MG/ML VIAL (J1200) As Ordered ONE (09:23)
[2018-11-25] MEDS ORDERED: SUGAMMADEX SODIUM 500 MG/5 ML VIAL (BRIDION) As Ordered ONE (09:24)
--- NOTE | 2018-11-25 10:27 | RO ---
DATE OF PROCEDURE: 11/25/2018 PREPROCEDURE DIAGNOSIS: Bladder cancer. POSTPROCEDURE DIAGNOSIS: Bladder cancer. PROCEDURE: Cystoscopy, transurethral resection of bladder tumor (between 2-5 cm), intravesical mitomycin C installation. SURGEON: Dr. Meet Garcia SENIOR TECHNOLOGIST: None. ANESTHESIA: General. OPERATIVE INDICATIONS: This is a 68-year-old female that had history of low grade bladder cancer who on recent office cystoscopy was found to have several papillary tumors throughout her bladder. She was brought to the operating room today for the above listed procedures. DESCRIPTION OF PROCEDURE: The patient was brought to the operating room where general anesthesia was induced. Prophylactic antibiotics were infused. She was then placed in dorsal lithotomy position and prepped and draped in the usual sterile fashion. A rigid cystoscope was inserted into the urethral meatus and advanced into the bladder using visual obturator. The bladder was then thoroughly examined. It was noted she had several very small papillary tumors dispersed throughout her bladder, on the anterior wall, the posterior wall, at the base, as well as, on the left lateral wall. All these tumors were resected using a Gyrus loop. The base of resection in each area was cauterized for good hemostasis. Once done resecting all the tumors were removed using an [employer] evacuator. The bladder was then examined several additional times to ensure that all the visible tumors were removed. Once that was done and I was satisfied with hemostasis, the resectoscope was removed. I then inserted an 18 Cymraes 3-way catheter and filled the balloon with 30 mL of sterile water. The irrigation port was plugged and at this point 40 mg of mitomycin C was instilled into the bladder and once that was done that port was plugged. This marked the conclusion of the procedure. The patient was then taken out of the dorsal lithotomy position, awakened from anesthesia and transported to the recovery room in stable condition. Estimated blood loss: 5 mL. Complications: None. Specimen: Bladder tumors. Plan: The patient will be keep the mitomycin C in her bladder for about an hour in the recovery room. Once that is done, it will be allowed to drain out. After which, the bladder will be irrigated out with normal saline. She will then go home with the catheter and follow up in the clinic next week for catheter removal and to discuss pathology results.
[2018-11-25] MEDS ORDERED: METOCLOPRAMIDE INJ 10MG/2ML VIAL (J2765) IV PRN (10:45)
[2018-11-25] MEDS ORDERED: fentaNYL 100 MCG/2 ML INJECTION (J3010) IV PRN (10:45)
[2018-11-25] MEDS ORDERED: LR 1,000 ML IV SCH (10:45)
[2018-11-25] MEDS ORDERED: PROMETHAZINE INJ 25 MG/ML VIAL (J2550) IV PRN (10:45)
[2018-11-25] MEDS ORDERED: oxyCODONE 5MG TAB PO PRN (10:45)
[2018-11-25] MEDS ORDERED: ACETAMINOPHEN TAB 650MG DOSE (2X325MG) PO PRN (11:00)
[2018-11-25 12:31] VITALS: BP 133/61
== END 2018-11-25 12:45 | disposition home or self-care (01) ==
LOC: M SDC 07:24
PROVIDERS: ATTEND Urology
DX: C67.8 Malignant neoplasm of overlapping sites of bladder (principal); I10 Essential (primary) hypertension; E78.5 Hyperlipidemia, unspecified; E11.9 Type 2 diabetes mellitus without complications; E03.9 Hypothyroidism, unspecified; K21.9 Gastro-esophageal reflux disease without esophagitis; Z92.3 Personal history of irradiation; Z88.2 Allergy status to sulfonamides; Z88.8 Allergy status to other drugs, medicaments and biological substances; Z79.84 Long term (current) use of oral hypoglycemic drugs; Z79.899 Other long term (current) drug therapy; Z87.891 Personal history of nicotine dependence
CPT/HCPCS: 51720; 52235; 88307; J0690; J1200; J1885; J2250; J2405; J2765; J3010; J9280

== ENCOUNTER → 2018-12-23 | Outpatient (REF) | payer MEDICARE, OTHER ==
[~2018-12-23] MED LIST changes: -LIDOCAINE 1% MDV 20ML VIAL SQ PRN; -LR 1,000 ML IV ONE; -ROSU5TAB4 PO; +ROSU5TAB5 PO; -mitoMYcin 40MG VIAL (J9280 PER 5MG) INTRAVESIC ONE
[2018-12-23 13:31] LABS: ALBUMIN 3.6 GM/DL (3.2-5.2); ALT/SGPT 23 U/L (12-78); BILIRUBIN,TOTAL 0.3 MG/DL (0.2-1.0); BLOOD UREA NITROGEN 16 MG/DL (7-18); CALCIUM LEVEL 8.4 MG/DL (8.8-10.2); CARBON DIOXIDE LEVEL 27 MEQ/L (21-32); CHLORIDE LEVEL 107 MEQ/L (98-107); CREATININE FOR GFR 0.72 MG/DL (0.55-1.30); GLOMERULAR FILTRATION RATE > 60.0 (>39); GLUCOSE, FASTING 95 MG/DL (70-100); POTASSIUM SERUM 4.2 MEQ/L (3.5-5.1); SODIUM LEVEL 142 MEQ/L (136-145); TOTAL PROTEIN 6.7 GM/DL (6.4-8.2)
[2018-12-23 14:43] LABS: HEMOGLOBIN A1c 6.3 %
== END ==
LOC: M LABDRAW1 11:47
PROVIDERS: ATTEND Nurse Practitioner Family
DX: E78.5 Hyperlipidemia, unspecified (principal); E11.9 Type 2 diabetes mellitus without complications; E03.9 Hypothyroidism, unspecified

== ENCOUNTER → 2018-12-28 | Outpatient (REF) | payer MEDICARE, OTHER ==
[2018-12-28 13:41] LABS: APPEARANCE, URINE CLOUDY (CLEAR); BACTERIA, URINE AUTO 1+ (NEGATIVE); BILIRUBIN, URINE AUTO NEGATIVE (NEGATIVE); BLOOD, URINE BLOOD 3+ (NEGATIVE); COLOR, URINE YELLOW (YELLOW); GLUCOSE, URINE (UA) AUTO NEGATIVE (NEGATIVE); KETONE, URINE AUTO NEGATIVE (NEGATIVE); LEUKOCYTE ESTERASE, URINE AUTO 3+ (NEGATIVE); MUCUS, URINE SMALL (NEGATIVE); NITRITE, URINE AUTO NEGATIVE (NEGATIVE); PROTEIN, URINE AUTO 2+ mg/dL (NEGATIVE); RBC, URINE AUTO TNTC /HPF (0-3); SPECIFIC GRAVITY URINE AUTO 1.013 (1.002-1.035); SQUAMOUS EPITHELIAL CELL UR AU 2 /HPF (0-6); UROBILINOGEN, URINE AUTO 0.2 mg/dL (0.0-2.0); WBC, URINE AUTO TNTC /HPF (0-3)
== END ==
LOC: M SMT 12:59
PROVIDERS: ATTEND Nurse Practitioner Family
DX: R30.0 Dysuria (principal)

== ENCOUNTER → 2018-12-29 | Outpatient (REF) | payer MEDICARE, OTHER ==
[2018-12-29 13:39] LABS: APPEARANCE, URINE MANUAL CLOUDY (CLEAR)
[2018-12-29 13:40] LABS: BILIRUBIN, URINE MANUAL OBSCURED (NEGATIVE); BLOOD URINE MANUAL POSITIVE (NEGATIVE); COLOR, URINE MANUAL BROWN (YELLOW); GLUCOSE, URINE (UA) MANUAL OBSCURED mg/dL (NEGATIVE); KETONE, URINE MANUAL OBSCURED mg/dL (NEGATIVE); LEUKOCYTE ESTERASE, URINE MAN OBSCURED (NEGATIVE); NITRITE, URINE MANUAL OBSCURED (NEGATIVE); PROTEIN, URINE MANUAL OBSCURED mg/dL (NEGATIVE); SPECIFIC GRAVITY,URINE MANUAL 1.015 (1.002-1.035); UROBILINOGEN, URINE MANUAL OBSCURED mg/dl (NORMAL)
[2018-12-29 13:48] LABS: AMORPHOUS SEDIMENT, URINE MOD AMOUNT (NEGATIVE); BACTERIA, URINE MOD AMOUNT; HYALINE CAST, URINE NONE SEEN /lpf (0-1); SQUAMOUS EPITHELIAL CELL URINE SMALL AMOUNT /hpf (SMALL AMT); WBC, URINE 30-40 /hpf (0-3)
== END ==
LOC: M SMT 12:56
PROVIDERS: ATTEND Nurse Practitioner Family
DX: N39.0 Urinary tract infection, site not specified (principal)

== ENCOUNTER → 2019-01-08 | Outpatient (REF) | payer MEDICARE, OTHER | LOC: M SMT 17:01 | PROVIDERS: ATTEND Urology | DX: N39.0 Urinary tract infection, site not specified (principal) ==

== ENCOUNTER → 2019-02-12 | Outpatient (REF) | payer MEDICARE, OTHER ==
[2019-02-12 13:17] LABS: FREE T4 1.29 NG/DL (0.76-1.46); THYROID STIMULATING HORMONE 0.654 uIU/ML (0.358-3.740)
== END ==
LOC: M LABDRAW1 12:00
PROVIDERS: ATTEND Nurse Practitioner Family
DX: E03.9 Hypothyroidism, unspecified (principal)

== ENCOUNTER → 2019-03-22 | Outpatient (REF) | payer MEDICARE, OTHER | LOC: M SMT 10:21 | PROVIDERS: ATTEND Urology | DX: C67.9 Malignant neoplasm of bladder, unspecified (principal) ==

== ENCOUNTER → 2019-04-08 | Outpatient (REF) | payer MEDICARE, OTHER | LOC: M SFHCPLAZ 10:22 | PROVIDERS: ATTEND Dermatology | DX: L57.0 Actinic keratosis (principal); L82.0 Inflamed seborrheic keratosis ==

== ENCOUNTER → 2019-04-09 | Outpatient (REF) | payer MEDICARE, OTHER ==
[2019-04-09 13:35] LABS: HEMOGLOBIN A1c 6.5 %
[2019-04-09 13:40] LABS: MALB URINE SIEMENS 14.6 MG/L; MAU/CREAT RATIO 8.2 MCG/MG (0.0-30.0)
[2019-04-09 14:13] LABS: ALBUMIN 3.7 GM/DL (3.2-5.2); ALT/SGPT 35 U/L (12-78); BILIRUBIN,TOTAL 0.3 MG/DL (0.2-1.0); BLOOD UREA NITROGEN 12 MG/DL (7-18); CALCIUM LEVEL 8.6 MG/DL (8.8-10.2); CARBON DIOXIDE LEVEL 27 MEQ/L (21-32); CHLORIDE LEVEL 105 MEQ/L (98-107); CHOLESTEROL LEVEL 158 MG/DL (<200); CHOLESTEROL RISK RATIO 3.291 (<5); CREATININE FOR GFR 0.83 MG/DL (0.55-1.30); FREE T4 1.13 NG/DL (0.76-1.46); GLOMERULAR FILTRATION RATE > 60.0 (>39); GLUCOSE, FASTING 112 MG/DL (70-100); HDL CHOLESTEROL 48 MG/DL (>40); LDL CHOLESTEROL 88 MG/DL (<100); NON-HDL-C 110 MG/DL; POTASSIUM SERUM 4.1 MEQ/L (3.5-5.1); SODIUM LEVEL 140 MEQ/L (136-145); TOTAL PROTEIN 6.9 GM/DL (6.4-8.2); TRIGLYCERIDES LEVEL 109 MG/DL (<150)
== END ==
LOC: M LABDRAW1 11:51
PROVIDERS: ATTEND Nurse Practitioner Family
DX: I10 Essential (primary) hypertension (principal); E11.9 Type 2 diabetes mellitus without complications; E78.5 Hyperlipidemia, unspecified; E03.9 Hypothyroidism, unspecified

== ENCOUNTER → 2019-06-21 | Outpatient (REF) | payer MEDICARE, OTHER | LOC: M SMT 13:03 | PROVIDERS: ATTEND Urology | DX: C67.9 Malignant neoplasm of bladder, unspecified (principal) ==

== ENCOUNTER → 2019-10-11 | Outpatient (REF) | payer MEDICARE | LOC: M LAB REF 17:20 | PROVIDERS: ATTEND Urology | DX: C67.9 Malignant neoplasm of bladder, unspecified (principal); N39.0 Urinary tract infection, site not specified ==

== ENCOUNTER → 2019-12-09 | Outpatient (CLI) | payer MEDICARE, BC, OTHER ==
[~2019-12-09] MED LIST changes: +AMLO1TAB24 PO; -AMLO5TAB6 PO
[2019-12-09 09:35] LABS: ALBUMIN 3.7 GM/DL (3.2-5.2); ALT/SGPT 31 U/L (12-78); BILIRUBIN,TOTAL 0.3 MG/DL (0.2-1.0); BLOOD UREA NITROGEN 15 MG/DL (7-18); CARBON DIOXIDE LEVEL 30 MEQ/L (21-32); CHLORIDE LEVEL 106 MEQ/L (98-107); CHOLESTEROL LEVEL 142 MG/DL (<200); CREATININE FOR GFR 0.84 MG/DL (0.55-1.30); FREE T4 1.15 NG/DL (0.76-1.46); GLOMERULAR FILTRATION RATE > 60.0 (>39); GLUCOSE, FASTING 121 MG/DL (70-100); HDL CHOLESTEROL 42 MG/DL (>40); LDL CHOLESTEROL 78 MG/DL (<100); NON-HDL-C 100 MG/DL; POTASSIUM SERUM 4.3 MEQ/L (3.5-5.1); SODIUM LEVEL 142 MEQ/L (136-145); TOTAL PROTEIN 6.8 GM/DL (6.4-8.2); TRIGLYCERIDES LEVEL 110 MG/DL (<150)
[2019-12-09 09:49] LABS: MALB URINE SIEMENS 30.1 MG/L; MAU/CREAT RATIO 11.5 MCG/MG (0.0-30.0)
[2019-12-09 10:20] LABS: HEMOGLOBIN A1c 6.7 %
[2019-12-10 18:39] LABS: TOTAL 25(OH) VITAMIN D 55.8 NG/ML (30.0-100.0)
== END ==
LOC: M LAB 07:50
PROVIDERS: ATTEND Nurse Practitioner Adult Health
DX: E11.9 Type 2 diabetes mellitus without complications (principal); E03.9 Hypothyroidism, unspecified; E55.9 Vitamin D deficiency, unspecified; E78.5 Hyperlipidemia, unspecified

== ENCOUNTER → 2020-02-18 | Outpatient (REF) | payer MEDICARE, BC, OTHER | LOC: M SMT 17:14 | PROVIDERS: ATTEND Urology | DX: C67.9 Malignant neoplasm of bladder, unspecified (principal) ==

== ENCOUNTER → 2020-06-06 | Outpatient (CLI) | payer MEDICARE, OTHER ==
[2020-06-06 09:26] LABS: ALBUMIN 3.7 GM/DL (3.2-5.2); ALT/SGPT 31 U/L (12-78); BILIRUBIN,TOTAL 0.3 MG/DL (0.2-1.0); BLOOD UREA NITROGEN 19 MG/DL (7-18); CALCIUM LEVEL 8.9 MG/DL (8.8-10.2); CARBON DIOXIDE LEVEL 28 MEQ/L (21-32); CHLORIDE LEVEL 106 MEQ/L (98-107); CHOLESTEROL LEVEL 156 MG/DL (<200); CHOLESTEROL RISK RATIO 3.391 (<5); CREATININE FOR GFR 0.84 MG/DL (0.55-1.30); GLOMERULAR FILTRATION RATE > 60.0 (>39); GLUCOSE, FASTING 128 MG/DL (70-100); HDL CHOLESTEROL 46 MG/DL (>40); LDL CHOLESTEROL 77 MG/DL (<100); NON-HDL-C 110 MG/DL; POTASSIUM SERUM 4.1 MEQ/L (3.5-5.1); SODIUM LEVEL 140 MEQ/L (136-145); TRIGLYCERIDES LEVEL 165 MG/DL (<150)
[2020-06-06 09:32] LABS: MALB URINE SIEMENS 42.2 MG/L; MAU/CREAT RATIO 14.3 MCG/MG (0.0-30.0)
[2020-06-06 09:44] LABS: TOTAL 25(OH) VITAMIN D 40.6 NG/ML (30.0-100.0)
[2020-06-06 11:15] LABS: HEMOGLOBIN A1c 6.3 %
== END ==
LOC: M LAB 08:13
PROVIDERS: ATTEND Nurse Practitioner Adult Health
DX: E11.9 Type 2 diabetes mellitus without complications (principal); E78.5 Hyperlipidemia, unspecified; E55.9 Vitamin D deficiency, unspecified; E03.9 Hypothyroidism, unspecified; Z79.899 Other long term (current) drug therapy

== ENCOUNTER → 2020-09-04 | Outpatient (REF) | payer MEDICARE, OTHER ==
[~2020-09-04] MED LIST changes: -FOLI400T PO; +FOLI400T13 PO
== END ==
LOC: M SMT 09:39
PROVIDERS: ATTEND Urology
DX: C67.9 Malignant neoplasm of bladder, unspecified (principal)

== ENCOUNTER → 2020-10-03 | Outpatient (CLI) | payer MEDICARE, BC, OTHER ==
[~2020-10-03] MED LIST changes: +D31000TA PO; +DULO1CAP4 PO; +FLUTISP; +IBUP80TA PO; +LEVO-92 PO; +ZINC1TAB2 PO
[2020-10-03 07:30] LABS: HEMATOCRIT 44.9 % (36.0-47.0); HEMOGLOBIN 14.1 g/dl (12.0-15.5); MEAN CORPUSCULAR HEMOGLOBIN 28.1 pg (27.0-33.0); MEAN CORPUSCULAR HGB CONC 31.4 g/dl (32.0-36.5); MEAN CORPUSCULAR VOLUME 89.4 fl (80.0-96.0); PLATELET COUNT, AUTOMATED 283 10^3/uL (150-450); RED BLOOD COUNT 5.02 10^6/uL (4.00-5.40); WHITE BLOOD COUNT 10.2 10^3/uL (4.0-10.0)
[2020-10-03 07:50] LABS: BLOOD UREA NITROGEN 17 MG/DL (7-18); CALCIUM LEVEL 9.4 MG/DL (8.8-10.2); CARBON DIOXIDE LEVEL 27 MEQ/L (21-32); CHLORIDE LEVEL 106 MEQ/L (98-107); CREATININE FOR GFR 0.85 MG/DL (0.55-1.30); GLOMERULAR FILTRATION RATE > 60.0 (>39); GLUCOSE, FASTING 134 MG/DL (70-100); SODIUM LEVEL 140 MEQ/L (136-145)
--- NOTE | 2020-10-03 08:37 | REP ---
INDICATION: MALIGNANT NEOPLASM OF BLADDER, UNSPECIFIED, Labs,EKG1st COMPARISON: 07/06/2018 TECHNIQUE: PA and lateral. FINDINGS: The mediastinum and cardiac silhouette are normal. The lung rucker are clear and without acute consolidation, effusion, or pneumothorax. There is an ill-defined heterogeneous/sclerotic lesion in the right humerus unchanged from prior examination likely representing old bony infarction. IMPRESSION: No acute cardiopulmonary process. <Electronically signed by Gustavo Rico > 10/03/20 [id number]
--- NOTE | 2020-10-04 00:29 | ECGEPIP ---
[facility] Test Date: 2020-10-03 Pat Name: ELIZABETH ALTAMIRANO Department: Room: - Gender: Female Watch Repair Person: TOMMIE : 1950 Requested By: WOLF Monteiro Order Number: [id number] Reading MD: Jackson Castillo Measurements Intervals Webster Rate: 74 P: 70 SD: 152 QRS: 22 QRSD: 88 T: 70 QT: 372 QTc: 412 Interpretive Statements Normal sinus rhythm with sinus arrhythmia Last tracing on 07/06/18, 10:11. No remarkable changes Electronically Signed on 10-04-2020 0:29:18 EDT by Jackson Castillo
== END ==
LOC: M LAB 06:37
PROVIDERS: ATTEND Urology
DX: Z01.818 Encounter for other preprocedural examination (principal); C67.9 Malignant neoplasm of bladder, unspecified

== ENCOUNTER → 2020-10-08 | Outpatient (CLI) | payer MEDICARE, OTHER | LOC: M LABSMTC 09:00 | PROVIDERS: ATTEND Anesthesiology | DX: Z01.812 Encounter for preprocedural laboratory examination (principal); Z20.822 Contact with and (suspected) exposure to COVID-19 ==

== ENCOUNTER 2020-10-13 11:25 | Day surgery (SDC) | payer MEDICARE, BC, OTHER ==
[~2020-10-13] VITALS: Ht 160 cm; Wt 91.1 kg
[~2020-10-13 11:25] MED LIST changes: +LR 1,000 ML IV ONE
[2020-10-13] MEDS: ceFAZolin SOD 2 GM in IV 1 EA IV ONE ×2 (11:25→12:50)
[2020-10-13] MEDS ORDERED: MIDAZOLAM INJ 2MG/2ML VIAL (J2250 PER 1MG) As Ordered ONE (11:42)
[2020-10-13] MEDS ORDERED: propofoL 200 MG/20 ML VIAL As Ordered ONE (11:43)
[2020-10-13] MEDS ORDERED: ePHEDrine SULFATE 25 MG/5 ML(5MG/ML) SYRINGE As Ordered ONE (11:43)
[2020-10-13] MEDS ORDERED: dexameTHASONE 4 MG/ML 1ML VIAL (J1100 PER 1MG) As Ordered ONE (11:43)
[2020-10-13] MEDS ORDERED: ROCURONIUM BROMIDE 50 MG/5 ML VIAL As Ordered ONE (11:43)
[2020-10-13] MEDS ORDERED: LIDOCAINE 2% 100MG/5ML SDV (FOR ANES.) As Ordered ONE (11:43)
[2020-10-13] MEDS ORDERED: ONDANSETRON 4MG/2ML VIAL As Ordered ONE (11:43)
[2020-10-13] MEDS ORDERED: SUGAMMADEX SODIUM 500 MG/5 ML VIAL (BRIDION) As Ordered ONE (11:43)
[2020-10-13] MEDS ORDERED: fentaNYL 100 MCG/2 ML INJECTION (J3010) As Ordered ONE (11:43)
[2020-10-13] MEDS ORDERED: PHENYLephrine 500MCG 5ML (100MCG/ML) SYRINGE As Ordered ONE (11:44)
[2020-10-13] MEDS ORDERED: SCOPOLAMINE 1MG TRANSDERMAL PATCH TOP ONE (12:30)
--- NOTE | 2020-10-13 13:37 | RO ---
OPERATIVE NOTE DATE OF OPERATION: 10/13/2020 PREOPERATIVE DIAGNOSIS: Bladder cancer. POSTOPERATIVE DIAGNOSIS: Bladder cancer. PROCEDURES: 1. Cystoscopy. 2. Transurethral resection of bladder tumors (less than 2 cm). SURGEON: Meet Garcia MD. CREATIVE SPECIALIST: None. ANESTHESIA: General. OPERATIVE INDICATIONS: This is a 70-year-old female with a history of low-grade bladder cancer who was found to have recurrent tumors on recent office cystoscopy. She is brought to the operating room today for treatment. DESCRIPTION OF PROCEDURE: The patient was brought to the operating room and general anesthesia was induced. Prophylactic antibiotics were infused. She was placed in the dorsolithotomy position, prepped, and draped in the usual sterile fashion. A resectoscope was inserted into the urethral meatus and advanced to the bladder using a visual obturator. The bladder was then thoroughly examined and the only abnormalities seen were two small papillary tumors measuring about 1.5 cm in size total. They were located just distal to the right ureteral orifice and close to the bladder neck. At this point, a bipolar loop was utilized to resect both tumors. Both tumors were sent off for pathologic analysis. The base of resection was then cauterized using coagulation current. At this point, hemostasis appeared excellent. I observed the right ureteral orifice to make sure that it was not damaged from the procedure and it continued to efflux clear urine without any difficulty. At this point, the resectoscope was removed and an 18-Paraguayan Dukes catheter was inserted into the bladder. The balloon was filled with 10 mL of sterile water and then the catheter was connected to gravity drainage. This marked the conclusion of the procedure. The patient was taken out of the dorsolithotomy position, awakened from anesthesia, and transported to the recovery room in stable condition. ESTIMATED BLOOD LOSS: 5 mL. COMPLICATIONS: None. SPECIMENS: Bladder tumors. PLAN: The patient will follow-up in the urology clinic next week for catheter removal and discuss her pathology results.
[2020-10-13] MEDS ORDERED: ACETAMINOPHEN TAB 650MG DOSE (2X325MG) PO PRN (13:40)
[2020-10-13] MEDS ORDERED: LR 1,000 ML IV SCH (13:45)
[2020-10-13] MEDS ORDERED: METOCLOPRAMIDE INJ 10MG/2ML VIAL (J2765 PER 1) IV PRN (13:45)
[2020-10-13] MEDS ORDERED: fentaNYL 100 MCG/2 ML INJECTION (J3010) IV PRN (13:45)
[2020-10-13] MEDS ORDERED: PERCOCET 5MG/325MG TAB PO PRN (13:45)
[2020-10-13] MEDS ORDERED: ONDANSETRON 4MG/2ML VIAL IV PRN (13:45)
[2020-10-13 14:25] VITALS: BP 156/79
== END 2020-10-13 15:17 | disposition home or self-care (01) ==
LOC: M SDC 11:25
PROVIDERS: ATTEND Urology
DX: C67.5 Malignant neoplasm of bladder neck (principal); I10 Essential (primary) hypertension; E78.5 Hyperlipidemia, unspecified; E11.9 Type 2 diabetes mellitus without complications; E03.9 Hypothyroidism, unspecified; K21.9 Gastro-esophageal reflux disease without esophagitis; M16.0 Bilateral primary osteoarthritis of hip; M17.0 Bilateral primary osteoarthritis of knee; R06.83 Snoring; Z85.3 Personal history of malignant neoplasm of breast; Z87.891 Personal history of nicotine dependence; Z92.3 Personal history of irradiation; Z88.8 Allergy status to other drugs, medicaments and biological substances; Z88.3 Allergy status to other anti-infective agents; Z88.2 Allergy status to sulfonamides; Z79.899 Other long term (current) drug therapy; Z79.84 Long term (current) use of oral hypoglycemic drugs
CPT/HCPCS: 52234; 88305; J0690; J1100; J2250; J2370; J2405; J3010

== ENCOUNTER → 2020-12-07 | Outpatient (REF) | payer MEDICARE, OTHER ==
[~2020-12-07] MED LIST changes: -LR 1,000 ML IV ONE; +MECL1TAB31 PO
[2020-12-07 11:02] LABS: HEMOGLOBIN A1c 6.3 %
[2020-12-07 11:18] LABS: ALBUMIN 3.9 GM/DL (3.2-5.2); ALT/SGPT 29 U/L (12-78); BILIRUBIN,TOTAL 0.2 MG/DL (0.2-1.0); BLOOD UREA NITROGEN 14 MG/DL (7-18); CALCIUM LEVEL 9.7 MG/DL (8.8-10.2); CARBON DIOXIDE LEVEL 29 MEQ/L (21-32); CHLORIDE LEVEL 108 MEQ/L (98-107); CREATININE FOR GFR 0.69 MG/DL (0.55-1.30); GLOMERULAR FILTRATION RATE > 60.0 (>39); GLUCOSE, FASTING 115 MG/DL (70-100); POTASSIUM SERUM 4.2 MEQ/L (3.5-5.1); SODIUM LEVEL 142 MEQ/L (136-145); THYROID STIMULATING HORMONE 0.887 uIU/ML (0.358-3.740); TOTAL PROTEIN 7.1 GM/DL (6.4-8.2)
[2020-12-07 12:04] LABS: TOTAL 25(OH) VITAMIN D 35.3 NG/ML (30.0-100.0)
== END ==
LOC: M SFHCPLAZ 08:49
PROVIDERS: ATTEND Nurse Practitioner Adult Health
DX: E55.9 Vitamin D deficiency, unspecified (principal); E11.9 Type 2 diabetes mellitus without complications; E78.5 Hyperlipidemia, unspecified; E03.9 Hypothyroidism, unspecified
CPT/HCPCS: 36415; 80053; 82306; 83036; 84443; G0463

== ENCOUNTER 2020-12-09 09:27 | Emergency (ER) | payer MEDICARE, BC, OTHER ==
[~2020-12-09 09:27] MED LIST changes: -MECL1TAB31 PO
[2020-12-09 10:15] LABS: BASO % 0.4 % (0.0-1.0); EOS # 0.3 10^3/uL (0.0-0.5); EOS % 2.9 % (0.0-3.0); HEMATOCRIT 44.7 % (36.0-47.0); HEMOGLOBIN 14.1 g/dl (12.0-15.5); LYMPH # 1.8 10^3/uL (1.5-5.0); LYMPH % 19.3 % (24.0-44.0); MEAN CORPUSCULAR HEMOGLOBIN 28.5 pg (27.0-33.0); MEAN CORPUSCULAR HGB CONC 31.5 g/dl (32.0-36.5); MEAN CORPUSCULAR VOLUME 90.3 fl (80.0-96.0); MONO # 0.6 10^3/uL (0.0-0.8); MONO % 6.2 % (2.0-8.0); NEUTROPHILS # 6.5 10^3/uL (1.5-8.5); NEUTROPHILS % 70.8 % (36.0-66.0); PLATELET COUNT, AUTOMATED 268 10^3/uL (150-450); RED BLOOD COUNT 4.95 10^6/uL (4.00-5.40); WHITE BLOOD COUNT 9.2 10^3/uL (4.0-10.0)
--- NOTE | 2020-12-09 10:32 | REP ---
INDICATION: fall, abrasion left posterior chest. COMPARISON: The frontal view of the chest has when compared to prior examination 10/03/2020 TECHNIQUE: Frontal view the chest four views of the ribs bilateral The lower ribs cannot be evaluated due to technique. There is underpenetration of the radiographic kraft. FINDINGS: The frontal view of the chest is unchanged from the prior exam showing no acute disease. There is no evidence of a rib fracture. Chronic changes are seen involving the spine and proximal right humerus. IMPRESSION: Findings and limitations as described above. <Electronically signed by Mychal Wyatt > 12/09/20 [id number]
--- NOTE | 2020-12-09 10:33 | REP ---
INDICATION: fall, abrasion left posterior chest. COMPARISON: None TECHNIQUE: AP pelvis two views left hip FINDINGS: AP pelvis shows mild to moderate bilateral hip joint space narrowing left slightly greater than right. There is no acute fracture, dislocation, or subluxation. IMPRESSION: Chronic changes as described above. <Electronically signed by Mychal Wyatt > 12/09/20 [id number]
[2020-12-09 10:51] LABS: ALBUMIN 3.7 GM/DL (3.2-5.2); ALT/SGPT 31 U/L (12-78); BILIRUBIN,TOTAL 0.4 MG/DL (0.2-1.0); BLOOD UREA NITROGEN 17 MG/DL (7-18); CALCIUM LEVEL 8.5 MG/DL (8.8-10.2); CARBON DIOXIDE LEVEL 30 MEQ/L (21-32); CHLORIDE LEVEL 107 MEQ/L (98-107); GLOMERULAR FILTRATION RATE > 60.0 (>39); GLUCOSE, FASTING 134 MG/DL (70-100); POTASSIUM SERUM 4.6 MEQ/L (3.5-5.1); SODIUM LEVEL 140 MEQ/L (136-145)
--- NOTE | 2020-12-09 11:13 | REP ---
INDICATION: fall, rib injury, right COMPARISON: None TECHNIQUE: Standard helical technique without the administration of intravenous contrast FINDINGS: There is no mediastinal or hilar adenopathy. There are no pleural or pericardial effusions. The imaged upper abdomen is within normal limits. Bone window technique throughout the examination shows the imaged osseous structures to be within normal limits. There are spinal degenerative changes. Evaluation of the lung rucker shows a partially peripherally calcified 4 mm size nodule in the left lower lobe. There are no other abnormal nodules, masses, or opacities. IMPRESSION: 1. The osseous structures are within normal limits. There is no evidence of an acute fracture. 2. Pulmonary nodule as described above. According to the revised Fleischner society criteria this represents a lung rads category 3 examination for which a six-month follow-up chest CT is recommended. <Electronically signed by Mychal Wyatt > 12/09/20 1711
--- NOTE | 2020-12-09 11:23 | ED PDOC ---
Post-Departure Follow-Up sujata lilly faxed formal report of ct chest for fu Britta Naik MD Dec 09, 2020 11:22
[2020-12-09] MEDS ORDERED: NS 500 ML IV ONE (11:55)
[2020-12-09] MEDS ORDERED: MECL1TAB31 PO (12:03)
[2020-12-09 14:30] VITALS: BP 148/70
== END 2020-12-09 14:30 | disposition home or self-care (01) ==
LOC: EDBD 09:27 → M ED 09:27
DX: R42 Dizziness and giddiness (principal); R91.1 Solitary pulmonary nodule; I10 Essential (primary) hypertension; E78.5 Hyperlipidemia, unspecified; E03.9 Hypothyroidism, unspecified; K21.9 Gastro-esophageal reflux disease without esophagitis; Z79.899 Other long term (current) drug therapy; Z79.890 Hormone replacement therapy; Z88.1 Allergy status to other antibiotic agents; Z88.2 Allergy status to sulfonamides; Z88.8 Allergy status to other drugs, medicaments and biological substances; Z87.891 Personal history of nicotine dependence

== ENCOUNTER → 2021-01-16 | Outpatient (REF) | payer MEDICARE, BC, OTHER ==
[~2021-01-16] MED LIST changes: +MECL1TAB31 PO
== END ==
LOC: M SMT 13:21
PROVIDERS: ATTEND Urology
DX: C67.9 Malignant neoplasm of bladder, unspecified (principal)

== ENCOUNTER → 2021-02-06 | Outpatient (CLI) | payer MEDICARE, BC, OTHER ==
[2021-02-06 11:00] LABS: BLOOD UREA NITROGEN 11 MG/DL (7-18); CREATININE FOR GFR 0.71 MG/DL (0.55-1.30); GLOMERULAR FILTRATION RATE > 60.0 (>39)
== END ==
LOC: M LAB 10:09
PROVIDERS: ATTEND Orthopaedic Surgery
DX: M79.601 Pain in right arm (principal)

== ENCOUNTER → 2021-02-09 | Outpatient (CLI) | payer MEDICARE, BC, OTHER ==
--- NOTE | 2021-02-09 16:32 | REP ---
INDICATION: PAIN RT ARM, R/O MASS. COMPARISON: None. TECHNIQUE: Coronal oblique T1, T2 fat sat, sagittal oblique T2 fat sat, axial T2 fat sat, gradient echo. Pre and post contrast T1 fat-sat imaging, with the intravenous administration of 17 cc ProHance. FINDINGS: Rotator cuff: There is mild tendinopathy/tendinitis of the supraspinatus tendon. Acromioclavicular joint: There are moderate hypertrophic degenerative changes of the acromioclavicular joint. Acromion: Type 2 Biceps Tendon: In bicipital groove, no tenosynovitis. Hill Sach's deformity: None. Deltoid muscle: No abnormal signal. Biceps labral complex: Intact. Labrum: No tear. Cartilage: No defects. Bone marrow: There is abnormal intramedullary bone marrow signal in the metaphyseal region of the proximal humerus. There is heterogeneous low signal on T1 and high signal on T2, in a pattern suggesting and internal chondroid matrix. The area measures approximately 4.2 x 3.6 cm. This has the appearance of an enchondroma. There is no cortical disruption or extraosseous extension. There is no associated soft tissue mass. Joint fluid: No effusion. IMPRESSION: Bone lesion in the proximal humerus demonstrates characteristics most consistent with an enchondroma. Differentiation from low-grade chondrosarcoma can be difficult, but there are no signs favoring low-grade chondrosarcoma, such as a size over 5 cm, cortical breach, or associated soft tissue mass. <Electronically signed by Tam Portillo > 02/09/21 [id number]
== END ==
LOC: M PLARAD 09:56
PROVIDERS: ATTEND Orthopaedic Surgery
DX: M79.601 Pain in right arm (principal); M89.9 Disorder of bone, unspecified

== ENCOUNTER → 2021-05-16 | Outpatient (REF) | payer MEDICARE, OTHER ==
[~2021-05-16] MED LIST changes: +CARB1DRO11 OU; +CLAR10CA3 PO; +LOSA100T45 PO; -LOSA100T50 PO; -OMEP-221 PO; +OMEP40CA5 PO; -THERSOL2 OU; +zioptan OP
== END ==
LOC: M SMT 17:19
PROVIDERS: ATTEND Urology
DX: Z85.51 Personal history of malignant neoplasm of bladder (principal)

== ENCOUNTER → 2021-07-10 | Outpatient (CLI) | payer MEDICARE, BC, OTHER ==
[2021-07-10 13:00] LABS: HEMOGLOBIN A1c 6.4 %
[2021-07-10 13:26] LABS: ALBUMIN 3.9 GM/DL (3.2-5.2); ALT/SGPT 34 U/L (12-78); BILIRUBIN,TOTAL 0.2 MG/DL (0.2-1.0); BLOOD UREA NITROGEN 17 MG/DL (7-18); CALCIUM LEVEL 9.5 MG/DL (8.8-10.2); CARBON DIOXIDE LEVEL 30 MEQ/L (21-32); CHLORIDE LEVEL 105 MEQ/L (98-107); CHOLESTEROL LEVEL 142 MG/DL (<200); CHOLESTEROL RISK RATIO 2.958 (<5); CREATININE FOR GFR 0.79 MG/DL (0.55-1.30); GLOMERULAR FILTRATION RATE > 60.0 (>39); GLUCOSE, FASTING 115 MG/DL (70-100); HDL CHOLESTEROL 48 MG/DL (>40); LDL CHOLESTEROL 64 MG/DL (<100); NON-HDL-C 94 MG/DL; POTASSIUM SERUM 4.4 MEQ/L (3.5-5.1); SODIUM LEVEL 141 MEQ/L (136-145); TOTAL PROTEIN 7.3 GM/DL (6.4-8.2); TRIGLYCERIDES LEVEL 151 MG/DL (<150)
== END ==
LOC: M PLALAB 08:47
PROVIDERS: ATTEND Nurse Practitioner Adult Health
DX: E78.5 Hyperlipidemia, unspecified (principal); E11.9 Type 2 diabetes mellitus without complications; E55.9 Vitamin D deficiency, unspecified; E03.9 Hypothyroidism, unspecified; Z79.899 Other long term (current) drug therapy

== ENCOUNTER → 2021-08-28 | Outpatient (REF) | payer MEDICARE, BC, OTHER | LOC: M SMT 18:01 | PROVIDERS: ATTEND Urology | DX: Z85.51 Personal history of malignant neoplasm of bladder (principal) ==

== ENCOUNTER → 2021-12-28 | Outpatient (REF) | payer MEDICARE, OTHER | LOC: M SMT 17:05 | PROVIDERS: ATTEND Urology | DX: Z85.51 Personal history of malignant neoplasm of bladder (principal) ==

== ENCOUNTER → 2022-01-08 | Outpatient (CLI) | payer MEDICARE, OTHER ==
[2022-01-08 14:15] LABS: ALBUMIN 3.7 GM/DL (3.2-5.2); ALT/SGPT 25 U/L (12-78); BILIRUBIN,TOTAL 0.2 MG/DL (0.2-1.0); BLOOD UREA NITROGEN 17 MG/DL (7-18); CALCIUM LEVEL 9.5 MG/DL (8.8-10.2); CARBON DIOXIDE LEVEL 29 MEQ/L (21-32); CHLORIDE LEVEL 108 MEQ/L (98-107); CHOLESTEROL LEVEL 150 MG/DL (<200); CHOLESTEROL RISK RATIO 3.125 (<5); CREATININE FOR GFR 0.78 MG/DL (0.55-1.30); GLOMERULAR FILTRATION RATE > 60.0 (>39); GLUCOSE, FASTING 125 MG/DL (70-100); HDL CHOLESTEROL 48 MG/DL (>40); LDL CHOLESTEROL 76 MG/DL (<100); NON-HDL-C 102 MG/DL; POTASSIUM SERUM 4.8 MEQ/L (3.5-5.1); SODIUM LEVEL 142 MEQ/L (136-145); TOTAL PROTEIN 7.1 GM/DL (6.4-8.2); TRIGLYCERIDES LEVEL 132 MG/DL (<150)
[2022-01-08 14:21] LABS: HEMOGLOBIN A1c 6.5 %
[2022-01-08 14:36] LABS: MALB URINE SIEMENS 18.2 MG/L; MAU/CREAT RATIO 8.4 MCG/MG (0.0-30.0)
== END ==
LOC: M PLALAB 08:49
PROVIDERS: ATTEND Nurse Practitioner Adult Health
DX: E11.9 Type 2 diabetes mellitus without complications (principal); E78.5 Hyperlipidemia, unspecified; E03.9 Hypothyroidism, unspecified

== ENCOUNTER → 2022-05-06 | Outpatient (REF) | payer MEDICARE, OTHER | LOC: M SMT 13:06 | PROVIDERS: ATTEND Urology | DX: C67.9 Malignant neoplasm of bladder, unspecified (principal) ==

== ENCOUNTER → 2022-07-15 | Outpatient (CLI) | payer MEDICARE, OTHER ==
[2022-07-15 07:16] LABS: CREATININE, URINE 148.4 MG/DL
[2022-07-15 07:17] LABS: ALBUMIN 3.7 G/DL (3.2-5.2); ALKALINE PHOSPHATASE 61 U/L (46-116); ALT/SGPT 24 U/L (7.0-40); AST/SGOT 20 U/L (<34); BILIRUBIN,TOTAL 0.3 MG/DL (0.3-1.2); BLOOD UREA NITROGEN 15 MG/DL (9-23); CALCIUM LEVEL 8.8 MG/DL (8.3-10.6); CARBON DIOXIDE LEVEL 26 MMOL/L (20-31); CHLORIDE LEVEL 107 MMOL/L (98-107); CHOLESTEROL LEVEL 121 MG/DL (<200); CHOLESTEROL RISK RATIO 3.11 (<5); CREATININE FOR GFR 0.73 MG/DL (0.55-1.30); GLOMERULAR FILTRATION RATE > 60.0 (>39); GLUCOSE, FASTING 120 MG/DL (74-106); HDL CHOLESTEROL 38.8 MG/DL (>40); LDL CHOLESTEROL 64.4 MG/DL (<100); NON-HDL-C 82 MG/DL; POTASSIUM SERUM 4.1 MMOL/L (3.5-5.1); SODIUM LEVEL 140 MMOL/L (136-145); TOTAL PROTEIN 6.7 G/DL (5.7-8.2); TRIGLYCERIDES LEVEL 89 MG/DL (<150)
[2022-07-15 07:19] LABS: THYROID STIMULATING HORMONE 1.942 uIU/ML (0.55-4.78); TOTAL 25(OH) VITAMIN D 52.7 NG/ML (20.0-100.0)
== END ==
LOC: M LAB 06:03
PROVIDERS: ATTEND Nurse Practitioner Adult Health
DX: I10 Essential (primary) hypertension (principal); E78.5 Hyperlipidemia, unspecified; E03.9 Hypothyroidism, unspecified; E55.9 Vitamin D deficiency, unspecified; E11.9 Type 2 diabetes mellitus without complications; Z79.899 Other long term (current) drug therapy

== ENCOUNTER → 2022-11-04 | Outpatient (REF) | payer MEDICARE, OTHER ==
[~2022-11-04] MED LIST changes: +FLUT50SP17; -FLUTISP; -LOSA100T45 PO; +LOSA100T46 PO
== END ==
LOC: M SMT 13:01
PROVIDERS: ATTEND Urology
DX: C67.9 Malignant neoplasm of bladder, unspecified (principal)

== ENCOUNTER → 2023-04-25 | Outpatient (CLI) | payer MEDICARE, BC, OTHER ==
[~2023-04-25] MED LIST changes: +MECL-209 PO; -MECL1TAB31 PO
[2023-04-25 08:44] LABS: ALBUMIN 3.5 G/DL (3.2-5.2); ALKALINE PHOSPHATASE 61 U/L (46-116); ALT/SGPT 20 U/L (7.0-40); AST/SGOT 19 U/L (<34); BILIRUBIN,TOTAL 0.4 MG/DL (0.3-1.2); BLOOD UREA NITROGEN 18 MG/DL (9-23); CALCIUM LEVEL 9.4 MG/DL (8.3-10.6); CARBON DIOXIDE LEVEL 28 MMOL/L (20-31); CHLORIDE LEVEL 107 MMOL/L (98-107); CHOLESTEROL LEVEL 150 MG/DL (<200); CHOLESTEROL RISK RATIO 3.52 (<5); CREATININE FOR GFR 0.71 MG/DL (0.55-1.30); GLOMERULAR FILTRATION RATE > 60.0 (>39); GLUCOSE, FASTING 123 MG/DL (74-106); HDL CHOLESTEROL 42.6 MG/DL (>40); LDL CHOLESTEROL 85.8 MG/DL (<100); NON-HDL-C 107.4 MG/DL; POTASSIUM SERUM 4.4 MMOL/L (3.5-5.1); SODIUM LEVEL 143 MMOL/L (136-145); TOTAL PROTEIN 6.6 G/DL (5.7-8.2); TRIGLYCERIDES LEVEL 108 MG/DL (<150)
[2023-04-25 08:45] LABS: THYROID STIMULATING HORMONE 3.227 uIU/ML (0.55-4.78); TOTAL 25(OH) VITAMIN D 41.7 NG/ML (20.0-100.0)
[2023-04-25 09:49] LABS: HEMOGLOBIN A1c 6.2 % (4.0-6.0)
== END ==
LOC: M LAB 07:22
PROVIDERS: ATTEND Nurse Practitioner Adult Health
DX: I10 Essential (primary) hypertension (principal); E11.9 Type 2 diabetes mellitus without complications; E78.5 Hyperlipidemia, unspecified; E03.9 Hypothyroidism, unspecified; E55.9 Vitamin D deficiency, unspecified

== ENCOUNTER → 2023-05-05 | Outpatient (REF) | payer MEDICARE, BC, OTHER | LOC: M SMT 10:06 | PROVIDERS: ATTEND Urology | DX: C67.9 Malignant neoplasm of bladder, unspecified (principal) ==

== ENCOUNTER → 2023-10-30 | Outpatient (CLI) | payer MEDICARE, BC ==
[~2023-10-30] MED LIST changes: -FLUT50SP17; +FLUTISP; +ROSU5TAB40 PO; -ROSU5TAB5 PO
[2023-10-30 07:33] LABS: HEMATOCRIT 43.8 % (36.0-47.0); HEMOGLOBIN 14.3 g/dl (12.0-15.5); MEAN CORPUSCULAR HGB CONC 32.6 g/dl (32.0-36.5); MEAN CORPUSCULAR VOLUME 88.8 fl (80.0-96.0); PLATELET COUNT, AUTOMATED 258 10^3/uL (150-450); RED BLOOD COUNT 4.93 10^6/uL (4.00-5.40); WHITE BLOOD COUNT 8.7 10^3/uL (4.0-10.0)
[2023-10-30 07:53] LABS: MAU/CREAT RATIO 10.1 MCG/MG (0.0-30.0)
[2023-10-30 07:55] LABS: ALBUMIN 3.8 G/DL (3.2-5.2); ALKALINE PHOSPHATASE 63 U/L (46-116); ALT/SGPT 26 U/L (7.0-40); AST/SGOT 18 U/L (<34); BILIRUBIN,TOTAL 0.4 MG/DL (0.3-1.2); BLOOD UREA NITROGEN 17 MG/DL (9-23); CALCIUM LEVEL 9.2 MG/DL (8.3-10.6); CARBON DIOXIDE LEVEL 28 MMOL/L (20-31); CHLORIDE LEVEL 107 MMOL/L (98-107); CHOLESTEROL LEVEL 145 MG/DL (<200); CHOLESTEROL RISK RATIO 3.32 (<5); CREATININE FOR GFR 0.74 MG/DL (0.55-1.30); GLOMERULAR FILTRATION RATE > 60.0 (>39); GLUCOSE, FASTING 141 MG/DL (74-106); HDL CHOLESTEROL 43.6 MG/DL (>40); NON-HDL-C 101.4 MG/DL; POTASSIUM SERUM 4.2 MMOL/L (3.5-5.1); SODIUM LEVEL 142 MMOL/L (136-145); TOTAL PROTEIN 6.7 G/DL (5.7-8.2); TRIGLYCERIDES LEVEL 112 MG/DL (<150)
[2023-10-30 07:57] LABS: FERRITIN 70.3 NG/ML (7.3-270.7); THYROID STIMULATING HORMONE 3.513 uIU/ML (0.55-4.78); TOTAL 25(OH) VITAMIN D 40.4 NG/ML (20.0-100.0)
[2023-10-30 08:15] LABS: HEMOGLOBIN A1c 6.2 % (4.0-6.0)
== END ==
LOC: M LAB 06:25
PROVIDERS: ATTEND Nurse Practitioner Adult Health
DX: I10 Essential (primary) hypertension (principal); E11.9 Type 2 diabetes mellitus without complications; E78.5 Hyperlipidemia, unspecified; E55.9 Vitamin D deficiency, unspecified; E03.9 Hypothyroidism, unspecified

== ENCOUNTER → 2023-11-03 | Outpatient (REF) | payer MEDICARE, BC | LOC: M SMT 10:18 | PROVIDERS: ATTEND Urology | DX: C67.9 Malignant neoplasm of bladder, unspecified (principal) ==

== ENCOUNTER → 2023-11-04 | Outpatient (CLI) | payer MEDICARE, BC | LOC: M PLAIMG 07:32 | PROVIDERS: ATTEND Nurse Practitioner Adult Health | DX: R06.02 Shortness of breath (principal) ==

== ENCOUNTER → 2023-12-16 | Outpatient (CLI) | payer MEDICARE, BC ==
[2023-12-16 11:09] LABS: BLOOD UREA NITROGEN 17 MG/DL (9-23); CALCIUM LEVEL 9.2 MG/DL (8.3-10.6); CARBON DIOXIDE LEVEL 29 MMOL/L (20-31); CHLORIDE LEVEL 107 MMOL/L (98-107); CREATININE FOR GFR 0.85 MG/DL (0.55-1.30); GLOMERULAR FILTRATION RATE > 60.0 (>39); GLUCOSE, FASTING 114 MG/DL (74-106); POTASSIUM SERUM 4.1 MMOL/L (3.5-5.1); SODIUM LEVEL 142 MMOL/L (136-145)
== END ==
LOC: M PLALAB 07:36
PROVIDERS: ATTEND Nurse Practitioner Adult Health
DX: I10 Essential (primary) hypertension (principal)

== ENCOUNTER → 2024-05-13 | Outpatient (CLI) | payer MEDICARE, BC ==
[~2024-05-13] MED LIST changes: -ROSU5TAB40 PO; +ROSU5TAB49 PO
[2024-05-13 11:07] LABS: ALBUMIN 3.7 G/DL (3.2-5.2); ALKALINE PHOSPHATASE 64 U/L (35-104); ALT/SGPT 19 U/L (7.0-40); AST/SGOT 11 U/L (<34); BILIRUBIN,TOTAL 0.4 MG/DL (0.3-1.2); BLOOD UREA NITROGEN 19 MG/DL (9-23); CALCIUM LEVEL 9.5 MG/DL (8.3-10.6); CARBON DIOXIDE LEVEL 29 MMOL/L (20-31); CHLORIDE LEVEL 107 MMOL/L (98-107); CHOLESTEROL LEVEL 144 MG/DL (<200); CHOLESTEROL RISK RATIO 3.45 (<5); CREATININE FOR GFR 0.88 MG/DL (0.55-1.30); GLOMERULAR FILTRATION RATE > 60.0 (>39); GLUCOSE, FASTING 130 MG/DL (74-106); HDL CHOLESTEROL 41.7 MG/DL (>40); LDL CHOLESTEROL 80.3 MG/DL (<100); NON-HDL-C 102.3 MG/DL; POTASSIUM SERUM 4.3 MMOL/L (3.5-5.1); SODIUM LEVEL 144 MMOL/L (136-145); TOTAL PROTEIN 6.8 G/DL (5.7-8.2); TRIGLYCERIDES LEVEL 110 MG/DL (<150)
[2024-05-13 11:08] LABS: TOTAL 25(OH) VITAMIN D 64.4 NG/ML (20.0-100.0)
[2024-05-13 11:28] LABS: HEMOGLOBIN A1c 6.4 % (4.0-6.0)
== END ==
LOC: M PLALAB 09:07
PROVIDERS: ATTEND Nurse Practitioner Adult Health
DX: E11.9 Type 2 diabetes mellitus without complications (principal); I10 Essential (primary) hypertension; E78.5 Hyperlipidemia, unspecified; E55.9 Vitamin D deficiency, unspecified

== ENCOUNTER → 2024-10-04 | Outpatient (CLI) | payer MEDICARE, BC ==
[2024-10-04 10:33] LABS: HEMATOCRIT 43.4 % (36.0-47.0); HEMOGLOBIN 13.8 g/dl (12.0-15.5); MEAN CORPUSCULAR HEMOGLOBIN 28.6 pg (27.0-33.0); MEAN CORPUSCULAR HGB CONC 31.8 g/dl (32.0-36.5); MEAN CORPUSCULAR VOLUME 89.9 fl (80.0-96.0); PLATELET COUNT, AUTOMATED 285 10^3/uL (150-450); RED BLOOD COUNT 4.83 10^6/uL (4.00-5.40); WHITE BLOOD COUNT 7.9 10^3/uL (4.0-10.0)
[2024-10-04 10:48] LABS: HEMOGLOBIN A1c 5.8 % (4.0-6.0)
[2024-10-04 10:51] LABS: ALBUMIN 3.5 G/DL (3.2-5.2); BILIRUBIN,TOTAL 0.4 MG/DL (0.3-1.2); CALCIUM LEVEL 8.8 MG/DL (8.3-10.6); CHOLESTEROL RISK RATIO 3.5 (<5); CREATININE FOR GFR 0.75 MG/DL (0.55-1.30); GLOMERULAR FILTRATION RATE 82.5 (>39); HDL CHOLESTEROL 43.4 MG/DL (>40); LDL CHOLESTEROL 83.6 MG/DL (<100); NON-HDL-C 108.6 MG/DL; POTASSIUM SERUM 4.1 MMOL/L (3.5-5.1); TOTAL PROTEIN 6.5 G/DL (5.7-8.2)
[2024-10-04 10:52] LABS: TOTAL 25(OH) VITAMIN D 58.1 NG/ML (20.0-100.0)
[2024-10-04 10:53] LABS: FERRITIN 88.5 NG/ML (7.3-270.7); FREE T4 1.37 NG/DL (0.89-1.76); THYROID STIMULATING HORMONE 0.659 uIU/ML (0.55-4.78)
== END ==
LOC: M PLALAB 07:29
PROVIDERS: ATTEND Nurse Practitioner Adult Health
DX: M79.10 Myalgia, unspecified site (principal); I10 Essential (primary) hypertension; E03.9 Hypothyroidism, unspecified; E11.9 Type 2 diabetes mellitus without complications; E78.5 Hyperlipidemia, unspecified; Z79.899 Other long term (current) drug therapy; Z79.84 Long term (current) use of oral hypoglycemic drugs

== ENCOUNTER → 2024-10-25 | Outpatient (REF) | payer MEDICARE, BC | LOC: M SMT 12:48 | PROVIDERS: ATTEND Urology | DX: C67.9 Malignant neoplasm of bladder, unspecified (principal) ==